=== PATIENT | female | born 1975 | race Caucasian/White ===

== ENCOUNTER 2024-09-07 17:56 | Inpatient (IN) ==
[2024-09-07] MEDS ORDERED: Patient's ALLERGY Info needs ENTERED STA (18:05)
[2024-09-07 18:35] LABS: Basophils # (auto) 0.05 K/uL (0.00-0.20); Basophils % (auto) 0.6 %; Eosinophils # (auto) 0.07 K/uL (0.00-0.50); Eosinophils % (auto) 0.8 %; Hematocrit (blood only) 38.2 % (37.0-47.0); Hemoglobin 13.1 g/dl (12.0-16.0); Immature Granulocytes # (auto) 0.02 K/uL (0.01-0.20); Immature Granulocytes % (auto) 0.2 %; Lymphocytes % (auto) 34.6 %; Mean Corpuscular Hemoglobin 27.7 pg (25.0-34.0); Mean Corpuscular Hgb Conc 34.3 g/dL (32.0-36.0); Mean Corpuscular Volume 80.8 fL (80.0-100.0); Mean Platelet Volume 10.8 fL (9.4-12.4); Monocytes # (auto) 0.49 K/uL (0.11-0.59); Monocytes % (auto) 5.6 %; Neutrophils # (auto) 5.05 K/uL (1.40-6.50); Neutrophils % (auto) 58.2 %; Platelet Count 216 K/uL (130-400); RDW Standard Deviation 41.5 fL (36.4-46.3); Red Blood Count 4.73 M/uL (4.20-5.40); White Blood Count 8.68 K/ul (4.8-10.8)
--- NOTE | 2024-09-07 18:49 | XRay Report ---
Chest radiograph, one view History: Chest pain Comparison: None Findings: Single AP view of the chest performed. No focal consolidation or pleural effusion. No pneumothorax. The cardiomediastinal silhouette is within normal limits. Normal pulmonary vascularity. No evidence for lymphadenopathy. No visualized bony or soft tissue abnormality. Impression: Normal chest radiograph Electronically signed by Zac Vallecillo 09-07-2024 6:48 PM
[2024-09-07 18:51] LABS: Alanine Aminotransferase 15 U/L (7-52); Albumin Globulin Ratio 1.4 (0.9-2); Albumin Level 4.2 gm/dl (3.4-5.0); Alkaline Phosphatase 76 U/L (34-104); Anion Gap 6 (3-11); Aspartate Aminotransferase 18 U/L (13-39); BUN Creatinine Ratio 14.5 (10-20); Bilirubin,Total 0.3 mg/dl (0.2-1.0); Blood Urea Nitrogen 11 mg/dl (6-23); Calcium 9.6 mg/dl (8.6-10.3); Carbon Dioxide 28 mmol/L (21-32); Chloride 103 mmol/L (98-107); Globulin 2.9 gm/dl (2.5-4.0); Glucose 240 mg/dl (70-99(Fasting)); Potassium 3.4 mmol/L (3.5-5.1); Sodium 137 mmol/L (136-145); Total Protein 7.1 gm/dl (6.0-8.3)
[2024-09-07 18:58] LABS: Troponin I High Sensitivity 6.2 pg/ml (0-14)
[2024-09-07 19:11] LABS: INR 0.9 (0.9-1.1); Partial Thromboplastin Time 27 Seconds (21-31); Prothrombin Time 9.9 Seconds (9.0-12.0)
--- NOTE | 2024-09-07 20:32 | Emergency Department Note ---
Impression & Plan Hypertensive crisis, Chest pain ED Provider Note NAME: PATRICIO VEE AGE: 48 SEX: F : 1975 ARRIVES VIA: Ambulance INFORMANT: Patient ED PROVIDER(S): Robert Singh DO CHIEF COMPLAINT: Chest pain and hypertension HPI: Patient is a 48-year-old female with a past medical history of hypertension that presents to the ER for chest pain which has been present for the past 2 days associate with a cough. Patient also admits to a headache and her blood pressures of 200s. She denies any belly pain, nausea, vomiting, or diarrhea. No dysuria, urgency, or frequency. No other new or remitting factors. She notes she is currently on lisinopril and did take this this morning. ADDITIONAL HISTORY OBTAINED: Per HPI Chronic Medical/Social Conditions Affecting Care: Per HPI PAST MEDICAL HISTORY:See Below PAST SURGICAL HISTORY:See Below FAMILY HISTORY:See Below SOCIAL HISTORY:See Below HOME MEDICATIONS:See Below ALLERGIES:See Below VITALS:See Below PHYSICAL EXAMINATION: GENERAL: Sitting up in bed, alert, well appearing, well nourished, no distress, non-toxic EYE EXAM: normal conjunctiva. OROPHARYNX: mucous membranes are moist NECK: supple, no nuchal rigidity, no adenopathy, non-tender LUNGS: Clear to auscultation. Normal chest wall mechanics HEART: no murmurs, S1 normal and S2 normal ABDOMEN: abdomen soft, non-tender, normo-active bowel sounds, no masses, no rebound or guarding. UPPER EXTREMITIES: upper extremities are grossly normal. LOWER EXTREMITIES: No pitting edema. NEURO EXAM: Normal sensorium, cranial nerves II-XII grossly intact, normal speech, no gross weakness of arms, no gross weakness of legs. MEDICAL DECISION MAKING: Patient is a 48-year-old female who presents ER for the below stated complaint. IV was established and blood work was obtained. Labs show no significant leukocytosis or anemia. INR unremarkable. BMP with mild hypokalemia 3.4. LFTs and bilirubin were unremarkable. Troponin was negative. Viral panel was negative. CT angio of the chest was negative. CT head was negative. Patient was given IV labetalol for the hypertensive urgency/crisis. Patient was updated bedside. Discussed case with the hospitalist. Systolic pressures trended down from 220 to 180. Patient was admitted for further evaluation management treatment. Consults/Care Managements Discussions: Per [facility] Triage Nursing notes reviewed. Limited review of prior medical records performed Vital Signs: reviewed and remarkable for HTN Differential diagnosis: Cardiac ischemia, aortic dissection, pulmonary embolism, pneumothorax, pneumonia, pericarditis, myocarditis, esophageal rupture, GERD, cholecystitis, pancreatitis, musculoskeletal, as well as other pathologies. ER treatment provided: See below Diagnostics interpreted by me include EKG and cardiac monitoring as listed below: -Cardiac Monitoring: An order was placed for continuous cardiac monitoring. The monitor shows a rate of 70 with sinus rhythm. -ECG: Sinus rhythm rate 75 Normal axis No PVCs QTc 453 -Laboratory studies:Interpreted by me as stated above in MDM and shown below. Imaging studies: Xrays: As interpreted by me: Portable AP upright 1 view of the chest shows no focal infiltrate CTs show: none Procedures:none Critical Care: I have personally spent 33 minutes of critical care time in the direct management of this patient. This includes bedside care, interpretation of diagnostic studies, and testing, discussion with consultants, patient, and family members, and other required patient management activities. This 33 minutes is in excess of all separately billable procedures. Past Med/Surg History Problem List (Updated 09/08/24 @ 00:30 by Beau Guillen MD) Hypertensive crisis Social History Smoking Status: Current every day smoker Hx Alcohol Use: No Hx Substance Use: No Preferred Language: Frisian Filer Repairer Required: No Beliefs That Will Affect Care: None Current Living Situation: Family Feels Safe at Home: Yes Allergies Allergies Allergy/AdvReac Type Severity Reaction Status Date / Time latex Allergy Severe Rash Verified 09/07/24 21:52 naproxen Allergy Anaphylaxis Verified 09/07/24 21:52 metoprolol [From Toprol XL] AdvReac Intermediate swelling Verified 09/07/24 22:32 aspirin AdvReac Nausea Verified 09/07/24 21:51 Home Meds Home Medications Medication Instructions Recorded Confirmed Lasix 20 mg PO DAILY PRN leg swelling 09/07/24 09/07/24 fluoxetine 40 mg PO DAILY 09/07/24 09/07/24 levothyroxine 50 mcg PO DAILY 09/07/24 09/07/24 lisinopril 40 mg PO DAILY 09/07/24 09/07/24 omeprazole 20 mg PO DAILY 09/07/24 09/07/24 oxycodone 5 mg PO Q4H PRN Pain (Scale Score 09/07/24 09/07/24 4-6) potassium chloride 20 meq PO DAILY 09/07/24 09/07/24 pregabalin 150 mg PO TID 09/07/24 09/07/24 trazodone 200 mg PO HS 09/07/24 09/07/24 Results & Data (ED) Vital Signs Vital Signs - 24 hr 09/07/24 18:05 09/07/24 20:13 09/07/24 20:13 Temperature 36.8 C Temperature Source Temporal Artery Scan Pulse Rate 82 Pulse Rate [Apical] 67 Pulse Rate from SpO2 Sensor Pulse Rhythm [Apical] Pulse Strength [Apical] Respiratory Rate 18 15 Respiratory Effort / Characteristics Respiratory Depth Respiratory Pattern Blood Pressure 196/133 H Blood Pressure [Left Arm] 212/120 H Blood Pressure Mean 154 Blood Pressure Mean [Left Arm] 150 Pulse Oximetry 98 99 99 Oxygen Delivery Method Room Air Room Air Room Air Sepsis Recent Fever Within 48 Hours No Sepsis New/Unexplained Change in Mental Status N/A Sepsis Action Taken by Nursing No Action Required 09/07/24 20:13 09/07/24 20:15 09/07/24 21:13 Temperature Temperature Source Pulse Rate 71 67 Pulse Rate [Apical] Pulse Rate from SpO2 Sensor Pulse Rhythm [Apical] Pulse Strength [Apical] Respiratory Rate Respiratory Effort / Characteristics Respiratory Depth Respiratory Pattern Blood Pressure 199/122 H Blood Pressure [Left Arm] Blood Pressure Mean Blood Pressure Mean [Left Arm] Pulse Oximetry 98 Oxygen Delivery Method Room Air Sepsis Recent Fever Within 48 Hours Sepsis New/Unexplained Change in Mental Status Sepsis Action Taken by Nursing 09/07/24 23:09 09/07/24 23:15 09/07/24 23:15 Temperature Temperature Source Pulse Rate 71 Pulse Rate [Apical] 70 Pulse Rate from SpO2 Sensor 71 Pulse Rhythm [Apical] Regular Pulse Strength [Apical] Normal Respiratory Rate 19 18 Respiratory Effort / Characteristics Non-Labored Spontaneous Respiratory Depth Normal Respiratory Pattern Regular Blood Pressure 214/115 H Blood Pressure [Left Arm] 209/112 H Blood Pressure Mean 156 Blood Pressure Mean [Left Arm] 144 Pulse Oximetry 99 99 Oxygen Delivery Method Room Air Sepsis Recent Fever Within 48 Hours Sepsis New/Unexplained Change in Mental Status Sepsis Action Taken by Nursing 09/07/24 23:15 09/07/24 23:30 09/07/24 23:30 Temperature Temperature Source Pulse Rate 71 Pulse Rate [Apical] Pulse Rate from SpO2 Sensor 69 Pulse Rhythm [Apical] Pulse Strength [Apical] Respiratory Rate 21 Respiratory Effort / Characteristics Respiratory Depth Respiratory Pattern Blood Pressure 214/115 H 173/144 H Blood Pressure [Left Arm] Blood Pressure Mean 156 150 Blood Pressure Mean [Left Arm] Pulse Oximetry 99 Oxygen Delivery Method Sepsis Recent Fever Within 48 Hours Sepsis New/Unexplained Change in Mental Status Sepsis Action Taken by Nursing 09/07/24 23:33 09/07/24 23:46 09/07/24 23:46 Temperature Temperature Source Pulse Rate 74 Pulse Rate [Apical] Pulse Rate from SpO2 Sensor 74 Pulse Rhythm [Apical] Pulse Strength [Apical] Respiratory Rate 17 Respiratory Effort / Characteristics Respiratory Depth Respiratory Pattern Blood Pressure 191/106 H 191/106 H Blood Pressure [Left Arm] Blood Pressure Mean 124 124 Blood Pressure Mean [Left Arm] Pulse Oximetry 99 Oxygen Delivery Method Sepsis Recent Fever Within 48 Hours Sepsis New/Unexplained Change in Mental Status Sepsis Action Taken by Nursing 09/07/24 23:48 09/07/24 23:51 09/08/24 00:00 Temperature Temperature Source Pulse Rate 83 Pulse Rate [Apical] Pulse Rate from SpO2 Sensor 84 Pulse Rhythm [Apical] Pulse Strength [Apical] Respiratory Rate 15 19 Respiratory Effort / Characteristics Respiratory Depth Respiratory Pattern Blood Pressure 212/118 H Blood Pressure [Left Arm] Blood Pressure Mean 151 Blood Pressure Mean [Left Arm] Pulse Oximetry 98 Oxygen Delivery Method Sepsis Recent Fever Within 48 Hours Sepsis New/Unexplained Change in Mental Status Sepsis Action Taken by Nursing 09/08/24 00:00 09/08/24 00:10 09/08/24 00:10 Temperature Temperature Source Pulse Rate Pulse Rate [Apical] Pulse Rate from SpO2 Sensor Pulse Rhythm [Apical] Pulse Strength [Apical] Respiratory Rate Respiratory Effort / Characteristics Respiratory Depth Respiratory Pattern Blood Pressure 212/118 H 171/113 H 171/113 H Blood Pressure [Left Arm] Blood Pressure Mean 151 139 139 Blood Pressure Mean [Left Arm] Pulse Oximetry Oxygen Delivery Method Sepsis Recent Fever Within 48 Hours Sepsis New/Unexplained Change in Mental Status Sepsis Action Taken by Nursing 09/08/24 00:12 09/08/24 00:15 09/08/24 00:15 Temperature Temperature Source Pulse Rate 89 90 Pulse Rate [Apical] Pulse Rate from SpO2 Sensor 93 H 87 Pulse Rhythm [Apical] Pulse Strength [Apical] Respiratory Rate 16 20 Respiratory Effort / Characteristics Respiratory Depth Respiratory Pattern Blood Pressure 152/94 H Blood Pressure [Left Arm] Blood Pressure Mean 130 Blood Pressure Mean [Left Arm] Pulse Oximetry 94 98 Oxygen Delivery Method Sepsis Recent Fever Within 48 Hours Sepsis New/Unexplained Change in Mental Status Sepsis Action Taken by Nursing 09/08/24 00:16 09/08/24 00:20 09/08/24 00:25 Temperature Temperature Source Pulse Rate 84 Pulse Rate [Apical] Pulse Rate from SpO2 Sensor Pulse Rhythm [Apical] Pulse Strength [Apical] Respiratory Rate Respiratory Effort / Characteristics Respiratory Depth Respiratory Pattern Blood Pressure 177/99 H 183/107 H Blood Pressure [Left Arm] Blood Pressure Mean 137 135 Blood Pressure Mean [Left Arm] Pulse Oximetry Oxygen Delivery Method Sepsis Recent Fever Within 48 Hours Sepsis New/Unexplained Change in Mental Status Sepsis Action Taken by Nursing Laboratory Data 09/07/24 18:19 09/07/24 18:19 Lab Results 09/07/24 09/07/24 09/07/24 Range/Units 18:19 21:50 22:29 WBC 8.68 (4.8-10.8) K/ul RBC 4.73 (4.20-5.40) M/uL Hgb 13.1 (12.0-16.0) g/dl Hct 38.2 (37.0-47.0) % MCV 80.8 (80.0-100.0) fL MCH 27.7 (25.0-34.0) pg MCHC 34.3 (32.0-36.0) g/dL RDW Std Deviation 41.5 (36.4-46.3) fL RDW Coeff of Nirav 14.0 (11.5-14.5) % Plt Count 216 (130-400) K/uL MPV 10.8 (9.4-12.4) fL Immature Gran % (Auto) 0.2 % Neut % (Auto) 58.2 % Lymph % (Auto) 34.6 % [place] % (Auto) 5.6 % Eos % (Auto) 0.8 % Baso % (Auto) 0.6 % Neut # (Auto) 5.05 (1.40-6.50) K/uL Lymph # (Auto) 3.00 (1.20-3.40) K/uL [place] # (Auto) 0.49 (0.11-0.59) K/uL Eos # (Auto) 0.07 (0.00-0.50) K/uL Baso # (Auto) 0.05 (0.00-0.20) K/uL Immature Gran # (Auto) 0.02 (0.01-0.20) K/uL ESR 18 (0-20) mm/hr PT 9.9 (9.0-12.0) Seconds INR 0.9 (0.9-1.1) APTT 27 (21-31) Seconds PTT Ratio 1.0 Sodium 137 (136-145) mmol/L Potassium 3.4 L (3.5-5.1) mmol/L Chloride 103 (98-107) mmol/L Carbon Dioxide 28 (21-32) mmol/L Anion Gap 6 (3-11) BUN 11 (6-23) mg/dl Creatinine 0.76 (0.6-1.2) mg/dl Est Cr Clr Drug Dosing Not Reportable eGFR 97.81 BUN/Creatinine Ratio 14.5 (10-20) Glucose 240 H (70-99(Fasting)) mg/dl Calcium 9.6 (8.6-10.3) mg/dl Magnesium 1.7 (1.7-2.4) mg/dl Total Bilirubin 0.3 (0.2-1.0) mg/dl AST 18 (13-39) U/L ALT 15 (7-52) U/L Alkaline Phosphatase 76 (34-104) U/L Troponin I High Sens 6.2 8.3 (0-14) pg/ml C-Reactive Protein 1.38 H (0-0.5) mg/dl Total Protein 7.1 (6.0-8.3) gm/dl Albumin 4.2 (3.4-5.0) gm/dl Globulin 2.9 (2.5-4.0) gm/dl Albumin/Globulin Ratio 1.4 (0.9-2) TSH 1.809 (0.300-4.500) uIu/ml Adenovirus (PCR) Not Detected (NotDetected) B. pertussis DNA (PCR) Not Detected (NotDetected) B.parapertussis DNA PCR Not Detected (NotDetected) C. pneumoniae DNA (PCR) Not Detected (NotDetected) Coronavirus OC43 (PCR) Not Detected (NotDetected) Coronavirus HKU1 (PCR) Not Detected (NotDetected) Coronavirus 229E (PCR) Not Detected (NotDetected) SARS-CoV-2 (PCR) Not Detected (NotDetected) Coronavirus NL63 (PCR) Not Detected (NotDetected) Human Metapneumovir PCR Not Detected (NotDetected) Influenza Type A (PCR) Not Detected (NotDetected) Influenza Type B (PCR) Not Detected (NotDetected) M. pneumoniae (PCR) Not Detected (NotDetected) Parainfluenza 1 (PCR) Not Detected (NotDetected) Parainfluenza 2 (PCR) Not Detected (NotDetected) Parainfluenza 3 (PCR) Not Detected (NotDetected) Parainfluenza 4 (PCR) Not Detected (NotDetected) RSV (PCR) Not Detected (NotDetected) Entero/Rhino (PCR) Not Detected (NotDetected) Administered Medications Potassium Chloride/Sodium Chloride (Normal Saline W/20 Meq Kcl) 20 meq in 1,000 mls @ 50 mls/hr IV .Q20H ONE Stop: 09/08/24 17:49 Last Admin: 09/07/24 22:52 Dose: 50 mls/hr Documented By: MARICRUZ Promethazine HCl (Phenergan) 6.25 mg in 50.25 mls @ 201 mls/hr IV Q6H PRN PRN Reason: Nausea And Vomiting Stop: 10/07/24 21:50 Last Infusion: 09/07/24 23:11 Dose: Infused Documented By: Admin: 09/07/24 22:52 Dose: 201 mls/hr Documented By: MARICRUZ Magnesium Sulfate/Dextrose (Magnesium Sulfate / D5w) 1 gm in 100 mls @ 50 mls/hr IV ONE ONE Stop: 09/08/24 01:44 Last Admin: 09/08/24 00:04 Dose: 50 mls/hr Documented By: ORLANDO Morphine Sulfate (Morphine Sulfate 4 Mg/Ml 1 Ml Carp\Vial) 4 mg IV Q4H PRN PRN Reason: Pain Stop: 09/21/24 21:50 Last Admin: 09/07/24 22:51 Dose: 4 mg Documented By: MARICRUZ Nitroglycerin (Nitroglycerin Sl 0.4 Mg/Tab Tab) 0.4 mg SL Q5M PRN PRN Reason: Chest Pain Stop: 10/07/24 23:18 Last Admin: 09/08/24 00:07 Dose: 0.4 mg Documented By: ORLANDO Pregabalin (Pregabalin 150 Mg Cap) 150 mg PO TID [facility] Stop: 10/07/24 23:44 Last Admin: 09/08/24 00:03 Dose: 150 mg Documented By: ORLANDO Trazodone HCl (Trazodone Hcl 100 Mg Tab) 200 mg PO HS [facility] Stop: 10/07/24 23:29 Last Admin: 09/08/24 00:02 Dose: 200 mg Documented By: ORLANDO Discontinued Medications Amlodipine Besylate (Amlodipine Besylate 5 Mg Tab) 2.5 mg PO NOW ONE Stop: 09/07/24 21:40 Last Admin: 09/07/24 22:35 Dose: 2.5 mg Documented By: MARICRUZ Amlodipine Besylate (Amlodipine Besylate 5 Mg Tab) 2.5 mg PO NOW ONE Stop: 09/07/24 23:32 Last Admin: 09/08/24 00:03 Dose: 2.5 mg Documented By: ORLANDO Hydralazine HCl (Hydralazine Hcl 20 Mg/Ml Vial) 10 mg IV NOW STA Stop: 09/07/24 22:47 Last Admin: 09/07/24 23:00 Dose: 10 mg Documented By: MARICRUZ Promethazine HCl (Phenergan) 6.25 mg in 50.25 mls @ 201 mls/hr IV NOW STA Stop: 09/07/24 23:00 Last Admin: 09/07/24 23:02 Dose: Not Given Documented By: MARICRUZ Ioversol (Optiray 320 125ml) 115 ml IV ONCE ONE Stop: 09/07/24 22:05 Last Admin: 09/07/24 22:07 Dose: 115 ml Documented By: GRAHAM Labetalol HCl (Labetalol Hcl Iv 5 Mg/Ml 20ml) 10 mg IV NOW STA Stop: 09/07/24 20:30 Last Admin: 09/07/24 20:40 Dose: 10 mg Documented By: MARICRUZ Nicotine (Nicotine 21 Mg/24 Hr Tdsy) 1 patch TD NOW STA Stop: 09/07/24 22:04 Last Admin: 09/07/24 22:38 Dose: 1 patch Documented By: MARICRUZ Oxycodone HCl (Oxycodone Hcl Ir 5 Mg Tab (Immediate Release)) 5 mg PO NOW STA Stop: 09/07/24 21:20 Last Admin: 09/07/24 21:44 Dose: 5 mg Documented By: MARICRUZ Potassium Chloride (Potassium Chloride Crtab 20 Meq Tabcr) 40 meq PO NOW STA Stop: 09/07/24 20:51 Last Admin: 09/07/24 21:13 Dose: 40 meq Documented By: MARICRUZ Imaging Data Radiologist's Impression: Chest X-Ray 09/07/24 18:10 Chest radiograph, one view History: Chest pain Comparison: None Findings: Single AP view of the chest performed. No focal consolidation or pleural effusion. No pneumothorax. The cardiomediastinal silhouette is within normal limits. Normal pulmonary vascularity. No evidence for lymphadenopathy. No visualized bony or soft tissue abnormality. Impression: Normal chest radiograph Electronically signed by Zac Vallecillo 09-07-2024 6:48 PM Chest CTA 09/07/24 21:39 Exam(s): CTA CHEST IV Amt: 115 ml optiray 320 EXAM: CT Angiography Chest With Intravenous Contrast CLINICAL HISTORY: Reason for exam: cp. TECHNIQUE: Axial computed tomographic angiography images of the chest with intravenous contrast. CTDI is 34.93 mGy and DLP is 1592.61 mGy-cm. Automated exposure control was utilized for the study. A dose lowering technique was utilized adhering to the principles of ALARA. MIP reconstructed images were created and reviewed. COMPARISON: No relevant prior studies available. FINDINGS: Pulmonary arteries: Unremarkable. No pulmonary embolism. Aorta: No acute findings. No thoracic aortic aneurysm. Lungs: Unremarkable. No segmental or lobar consolidation. Pleural space: Unremarkable. No pleural fluid or pneumothorax. Heart: Unremarkable. No cardiomegaly. No significant pericardial effusion. No evidence of RV dysfunction. Bones/joints: No acute fracture. No dislocation. Soft tissues: Unremarkable. Lymph nodes: There is mild bilateral hilar lymphadenopathy. No significant mediastinal lymphadenopathy identified. No axillary lymphadenopathy. Gallbladder and bile ducts: The gallbladder has been removed. Other findings: No primary mass or suspicious nodule. No significant upper abdominal abnormality identified. IMPRESSION: 1. No pulmonary embolism. 2. There is mild bilateral hilar lymphadenopathy. No significant mediastinal lymphadenopathy identified. No axillary lymphadenopathy. CT follow-up in 6 weeks recommended to document stability/resolution. Electronically signed by: Raheel Roberts MD 09/07/24 23:[address] 09/07/24 21:39 Exam(s): CT HEAD Without Contrast EXAM: CT Head Without Intravenous Contrast CLINICAL HISTORY: Reason for exam: clancy, htn crisis. TECHNIQUE: Axial computed tomography images of the head/brain without intravenous contrast. CTDI is 34.93 mGy and DLP is 1592.61 mGy-cm. Automated exposure control was utilized for the study. A dose lowering technique was utilized adhering to the principles of ALARA. COMPARISON: No relevant prior studies available. FINDINGS: Brain: Unremarkable. No hemorrhage. No significant white matter disease. No edema. Ventricles: Unremarkable. No ventriculomegaly. Bones/joints: Unremarkable. No acute fracture. Soft tissues: Unremarkable. Sinuses: Unremarkable as visualized. No acute sinusitis. Mastoid air cells: Unremarkable as visualized. No mastoid effusion. Sella: There is an empty sella. IMPRESSION: No acute intracranial abnormality. Electronically signed by: Raheel Roberts MD 09/07/24 23:21 PM Discharge Plan Visit Data Chief Complaint: Chest Pain Stated Complaint: CHEST PAIN ED Provider: Robert Singh Discharge Problem: Hypertensive crisis, Chest pain Forms Stand Alone Forms: My [facility] Prescriptions Prescriptions: No Action levothyroxine 50 mcg PO DAILY lisinopril 40 mg PO DAILY omeprazole 20 mg PO DAILY pregabalin 150 mg PO TID oxycodone 5 mg PO Q4H PRN (Reason: Pain (Scale Score 4-6)) Lasix 20 mg PO DAILY PRN (Reason: leg swelling) fluoxetine 40 mg PO DAILY potassium chloride 20 meq PO DAILY trazodone 200 mg PO Referrals Referrals: Doug Hong PA-C [Primary Care Provider] -
[2024-09-07] MEDS: LABETALOL HCL IV 5 MG/ML 20ML IV STA (20:40)
[2024-09-07 21:11] LABS: Magnesium 1.7 mg/dl (1.7-2.4)
[2024-09-07] MEDS: POTASSIUM CHLORIDE CRTAB 20 MEQ TABCR PO STA (21:13)
[2024-09-07 21:27] LABS: Thyroid Stimulating Hormone 1.809 uIu/ml (0.300-4.500)
[2024-09-07] MEDS: oxyCODONE HCL IR 5 MG TAB (IMMEDIATE RELEASE) PO STA (21:44)
[2024-09-07] MEDS ORDERED: LORazepam 0.5 MG TAB PO PRN (21:51)
[2024-09-07] MEDS ORDERED: oxyCODONE HCL IR 5 MG TAB (IMMEDIATE RELEASE) PO PRN (21:51)
[2024-09-07] MEDS: OPTIRAY 320 125ml IV ONE (22:07)
[2024-09-07] MEDS: amLODIPine BESYLATE 5 MG TAB PO ONE (22:35)
[2024-09-07] MEDS: NICOTINE 21 MG/24 HR TDSY TD STA (22:38)
[2024-09-07] MEDS: MoRPHine SULFATE 4 MG/ML 1 ML CARP\\VIAL IV PRN (22:51)
[2024-09-07 22:52] LABS: Adenovirus PCR Not Detected (NotDetected); Bordetella parapertussis PCR Not Detected (NotDetected); Bordetella pertussis PCR Not Detected (NotDetected); Chlamydia pneumoniae PCR Not Detected (NotDetected); Coronavirus 229E PCR Not Detected (NotDetected); Coronavirus CoV-2 (COVID19)PCR Not Detected (NotDetected); Coronavirus HKU1 PCR Not Detected (NotDetected); Coronavirus NL63 PCR Not Detected (NotDetected); Coronavirus OC43PCR Not Detected (NotDetected); Human Metapneumovirus PCR Not Detected (NotDetected); Influenza A PCR Not Detected (NotDetected); Influenza B PCR Not Detected (NotDetected); Mycoplasma pneumoniae PCR Not Detected (NotDetected); Parainfluenza Virus 1 PCR Not Detected (NotDetected); Parainfluenza Virus 2 PCR Not Detected (NotDetected); Parainfluenza Virus 3 PCR Not Detected (NotDetected); Parainfluenza Virus 4 PCR Not Detected (NotDetected); Respiratory Syncytial VirusPCR Not Detected (NotDetected); Rhinovirus/Enterovirus PCR Not Detected (NotDetected)
[2024-09-07] MEDS: PROMETHAZINE 6.25 MG/50.25 ML BAG IV PRN (22:52)
[2024-09-07] MEDS: NSS + 20MEQ KCL 20 MEQ/1,000 ML BAG IV ONE (22:52)
[2024-09-07] MEDS: hydrALAZINE HCL 20 MG/ML VIAL IV STA (23:00)
[2024-09-07] MEDS: PROMETHAZINE 6.25 MG/50.25 ML BAG IV STA (23:02)
[2024-09-07 23:07] LABS: C Reactive Protein 1.38 mg/dl (0-0.5)
[2024-09-07 23:15] LABS: Troponin I High Sensitivity 8.3 pg/ml (0-14)
--- NOTE | 2024-09-07 23:24 | History & Physical Report ---
Date of Service September 07, 2024 Assessment & Plan (1) Hypertensive crisis: Plan: Hypertensive crisis presenting as chest pain and headache complaints Concern for secondary causes of hypertension like primary hyperaldosteronism (given chronic hypokalemia on review of outpatient blood work) and LAURIE Rule out ACS given chest pain relief with nitroglycerin. hyperlipidemia, not on statin Rx Hilar adenopathy on CT imaging possibly from viral RTI DM2 on oral medications, BSG elevated, well-controlled as of last outpatient hemoglobin A1c of 6.6 from 2022 hypothyroidism, euthyroid as of today's TSH hx chronic migraine/idiopathic intracranial hypertension as per records anxiety/mood disorder, mild anxiety during exam ongoing tobacco abuse Admit to PCU Add amlodipine to home lisinopril (Patient provides history of BP being well-controlled on amlodipine in the past. Amlodipine had to be discontinued because of leg swelling after metoprolol added to regimen as per patient account.) Aldosterone to renin ratio labwork Outpatient sleep study TTE, Cardiology consult re: chest pain, hypertensive crisis Follow troponin Aspirin until ACS ruled out Initiate statin Rx Update lipid profile Supportive management for viral bronchitis Replace potassium Outpatient chest CT follow-up for hilar adenopathy after 6 weeks Basal bolus insulin, ISS BG goal 1 10-1 40, update hemoglobin A1c Nicotine patch DVT prophylaxis. Lovenox subcu Full code Text document was generated using [employer] voice recognition software. It may contain grammatical or spelling errors. Kindly contact undersigned for clarification of any documentation item in question. History of Present Illness Chief Complaint: Chest pain, headache Primary Care Provider: Doug Hong PA-C History obtained from patient, family, and records. Medical history significant for hypertension, hyperlipidemia, GERD, DM2 on oral medications, hypothyroidism, chronic migraine, idiopathic intracranial hypertension as per records, anxiety/mood disorder, ongoing tobacco abuse. 1 week history of achy headache symptoms different from migraine which later became constant. Some stress at home due to packing and extended work shifts in preparation for relocation to [place] next month. Nonrestorative sleep at home with snoring symptoms as per patient/family account. Patient does not check blood pressure at home. 2 days history of dry cough symptoms without chest pain or SOB. 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 Denies aspiration. No fever, no chills. No known exposure to sick animals/dairy cows/raw milk/wild birds/poultry/agricultural fair attendance/recent travel to an area of known H5N1 animal outbreaks. 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 SBP 240s at the worksite. Patient brought to ER for evaluation. IV labetalol administered at the ER. Chest pain relieved by nitroglycerin administration at the ER. Medical History as above Surgical History : Lymph node biopsy, cervical colposcopy, D&C Family History : Breast cancer, DM, SLE, heart disease Personal/Social history : 1 pack daily, occasional EtOH intake, EMT Allergies Allergy/AdvReac Type Severity Reaction Status Date / Time latex Allergy Severe Rash Verified 09/07/24 21:52 naproxen Allergy Anaphylaxis Verified 09/07/24 21:52 metoprolol [From Toprol XL] AdvReac Intermediate swelling Verified 09/07/24 22:32 aspirin AdvReac Nausea Verified 09/07/24 21:51 Home Medications Medication Instructions Recorded Confirmed Type Lasix 20 mg PO DAILY PRN leg swelling 09/07/24 09/07/24 History fluoxetine 40 mg PO DAILY 09/07/24 09/07/24 History levothyroxine 50 mcg PO DAILY 09/07/24 09/07/24 History lisinopril 40 mg PO DAILY 09/07/24 09/07/24 History omeprazole 20 mg PO DAILY 09/07/24 09/07/24 History oxycodone 5 mg PO Q4H PRN Pain (Scale Score 09/07/24 09/07/24 History 4-6) potassium chloride 20 meq PO DAILY 09/07/24 09/07/24 History pregabalin 150 mg PO TID 09/07/24 09/07/24 History trazodone 200 mg PO HS 09/07/24 09/07/24 History Past Med/Surg History Problem List (Updated 09/08/24 @ 00:30 by Beau Guillen MD) Hypertensive crisis Social History Smoking Status: Current every day smoker Tobacco Type: Cigarettes Cigarettes Per Day: 1 pack; Hx Alcohol Use: Yes Alcohol type: hard liquor Hx Substance Use: No Preferred Language: Indian Communication Ability: Effective Loss Control Engineer Required: No Beliefs That Will Affect Care: None Current Living Situation: Family Other Information That Helps Us Care for You: No Feels Safe at Home: Yes Safety Concerns: Feels Safe At This Time Review of Systems Review of Systems: As per HPI, all other systems reviewed and negative Physical Exam Physical Exam: GENERAL: Comfortable, slightly anxious, obese, no respiratory distress SKIN: Normal color, warm HEENT: [place] palpebral conjunctivae, no ptosis, moist buccal mucosa NECK : Supple, no tenderness CHEST : Decreased breath sounds, no tenderness HEART : RRR, no obvious murmurs ABDOMEN: Some distention, nontender EXTREMITIES : No LE swelling/tenderness, palpable pulses, no other conspicuous deformities noted NEUROLOGIC : Coherent, no facial asymmetry, no other gross focality Results & Data Results & Data Vital Signs (Past 12 Hours) Vital Signs Temp Pulse Pulse Resp BP BP Pulse Ox 09/07/24 23:09 70 19 209/112 H 99 09/07/24 21:13 67 199/122 H 09/07/24 20:15 71 09/07/24 20:13 98 09/07/24 20:13 67 15 212/120 H 99 09/07/24 20:13 99 09/07/24 18:05 36.8 C 82 18 196/133 H 98 O2 Del Method 09/07/24 23:09 Room Air 09/07/24 21:13 09/07/24 20:15 09/07/24 20:13 Room Air 09/07/24 20:13 Room Air 09/07/24 20:13 Room Air 09/07/24 18:05 Room Air Laboratory Results Laboratory Results WBC 8.68 K/ul (4.8-10.8) 09/07/24 18:19 RBC 4.73 M/uL (4.20-5.40) 09/07/24 18:19 Hgb 13.1 g/dl (12.0-16.0) 09/07/24 18:19 Hct 38.2 % (37.0-47.0) 09/07/24 18:19 MCV 80.8 fL (80.0-100.0) 09/07/24 18:19 MCH 27.7 pg (25.0-34.0) 09/07/24 18:19 MCHC 34.3 g/dL (32.0-36.0) 09/07/24 18:19 RDW Std Deviation 41.5 fL (36.4-46.3) 09/07/24 18:19 RDW Coeff of Nirav 14.0 % (11.5-14.5) 09/07/24 18:19 Plt Count 216 K/uL (130-400) 09/07/24 18:19 MPV 10.8 fL (9.4-12.4) 09/07/24 18:19 Immature Gran % (Auto) 0.2 % 09/07/24 18:19 Neut % (Auto) 58.2 % 09/07/24 18:19 Lymph % (Auto) 34.6 % 09/07/24 18:19 Bailey % (Auto) 5.6 % 09/07/24 18:19 Eos % (Auto) 0.8 % 09/07/24 18:19 Baso % (Auto) 0.6 % 09/07/24 18:19 Neut # (Auto) 5.05 K/uL (1.40-6.50) 09/07/24 18:19 Lymph # (Auto) 3.00 K/uL (1.20-3.40) 09/07/24 18:19 Bailey # (Auto) 0.49 K/uL (0.11-0.59) 09/07/24 18:19 Eos # (Auto) 0.07 K/uL (0.00-0.50) 09/07/24 18:19 Baso # (Auto) 0.05 K/uL (0.00-0.20) 09/07/24 18:19 Immature Gran # (Auto) 0.02 K/uL (0.01-0.20) 09/07/24 18:19 ESR 18 mm/hr (0-20) 09/07/24 22:29 PT 9.9 Seconds (9.0-12.0) 09/07/24 18:19 INR 0.9 (0.9-1.1) 09/07/24 18:19 APTT 27 Seconds (21-31) 09/07/24 18:19 PTT Ratio 1.0 09/07/24 18:19 Sodium 137 mmol/L (136-145) 09/07/24 18:19 Potassium 3.4 mmol/L (3.5-5.1) L 09/07/24 18:19 Chloride 103 mmol/L (98-107) 09/07/24 18:19 Carbon Dioxide 28 mmol/L (21-32) 09/07/24 18:19 Anion Gap 6 (3-11) 09/07/24 18:19 BUN 11 mg/dl (6-23) 09/07/24 18:19 Creatinine 0.76 mg/dl (0.6-1.2) 09/07/24 18:19 Est Cr Clr Drug Dosing Not Reportable 09/07/24 18:19 eGFR 97.81 09/07/24 18:19 BUN/Creatinine Ratio 14.5 (10-20) 09/07/24 18:19 Glucose 240 mg/dl (70-99(Fasting)) H 09/07/24 18:19 Calcium 9.6 mg/dl (8.6-10.3) 09/07/24 18:19 Magnesium 1.7 mg/dl (1.7-2.4) 09/07/24 18:19 Total Bilirubin 0.3 mg/dl (0.2-1.0) 09/07/24 18:19 AST 18 U/L (13-39) 09/07/24 18:19 ALT 15 U/L (7-52) 09/07/24 18:19 Alkaline Phosphatase 76 U/L (34-104) 09/07/24 18:19 Troponin I High Sens 8.3 pg/ml (0-14) 09/07/24 22:29 C-Reactive Protein 1.38 mg/dl (0-0.5) H 09/07/24 22:29 Total Protein 7.1 gm/dl (6.0-8.3) 09/07/24 18:19 Albumin 4.2 gm/dl (3.4-5.0) 09/07/24 18:19 Globulin 2.9 gm/dl (2.5-4.0) 09/07/24 18:19 Albumin/Globulin Ratio 1.4 (0.9-2) 09/07/24 18:19 TSH 1.809 uIu/ml (0.300-4.500) 09/07/24 18:19 Adenovirus (PCR) Not Detected (NotDetected) 09/07/24 21:50 B. pertussis DNA (PCR) Not Detected (NotDetected) 09/07/24 21:50 B.parapertussis DNA PCR Not Detected (NotDetected) 09/07/24 21:50 C. pneumoniae DNA (PCR) Not Detected (NotDetected) 09/07/24 21:50 Coronavirus OC43 (PCR) Not Detected (NotDetected) 09/07/24 21:50 Coronavirus HKU1 (PCR) Not Detected (NotDetected) 09/07/24 21:50 Coronavirus 229E (PCR) Not Detected (NotDetected) 09/07/24 21:50 SARS-CoV-2 (PCR) Not Detected (NotDetected) 09/07/24 21:50 Coronavirus NL63 (PCR) Not Detected (NotDetected) 09/07/24 21:50 Human Metapneumovir PCR Not Detected (NotDetected) 09/07/24 21:50 Influenza Type A (PCR) Not Detected (NotDetected) 09/07/24 21:50 Influenza Type B (PCR) Not Detected (NotDetected) 09/07/24 21:50 M. pneumoniae (PCR) Not Detected (NotDetected) 09/07/24 21:50 Parainfluenza 1 (PCR) Not Detected (NotDetected) 09/07/24 21:50 Parainfluenza 2 (PCR) Not Detected (NotDetected) 09/07/24 21:50 Parainfluenza 3 (PCR) Not Detected (NotDetected) 09/07/24 21:50 Parainfluenza 4 (PCR) Not Detected (NotDetected) 09/07/24 21:50 RSV (PCR) Not Detected (NotDetected) 09/07/24 21:50 Entero/Rhino (PCR) Not Detected (NotDetected) 09/07/24 21:50 Impressions Chest X-Ray 09/07/24 18:10 Chest radiograph, one view History: Chest pain Comparison: None Findings: Single AP view of the chest performed. No focal consolidation or pleural effusion. No pneumothorax. The cardiomediastinal silhouette is within normal limits. Normal pulmonary vascularity. No evidence for lymphadenopathy. No visualized bony or soft tissue abnormality. Impression: Normal chest radiograph Electronically signed by Zac Vallecillo 09-07-2024 6:[address] 09/07/24 21:39 Exam(s): CT HEAD Without Contrast EXAM: CT Head Without Intravenous Contrast CLINICAL HISTORY: Reason for exam: clancy, htn crisis. TECHNIQUE: Axial computed tomography images of the head/brain without intravenous contrast. CTDI is 34.93 mGy and DLP is 1592.61 mGy-cm. Automated exposure control was utilized for the study. A dose lowering technique was utilized adhering to the principles of ALARA. COMPARISON: No relevant prior studies available. FINDINGS: Brain: Unremarkable. No hemorrhage. No significant white matter disease. No edema. Ventricles: Unremarkable. No ventriculomegaly. Bones/joints: Unremarkable. No acute fracture. Soft tissues: Unremarkable. Sinuses: Unremarkable as visualized. No acute sinusitis. Mastoid air cells: Unremarkable as visualized. No mastoid effusion. Sella: There is an empty sella. IMPRESSION: No acute intracranial abnormality. Electronically signed by: Raheel Roberts MD 09/07/24 23:[address] head: No acute intracranial abnormality. CT chest: 1. No pulmonary embolism. 2. There is mild bilateral hilar lymphadenopathy. No significant mediastinal lymphadenopathy identified. No axillary lymphadenopathy. CT follow-up in 6 weeks recommended to document stability/resolution. Diagnostic Findings EKG as per my interpretation : rate 75, NSR, normal axis, 1 AVB, LVH, no ischemia
--- NOTE | 2024-09-07 23:33 | CT Scan Report ---
Exam(s): CTA CHEST IV Amt: 115 ml optiray 320 EXAM: CT Angiography Chest With Intravenous Contrast CLINICAL HISTORY: Reason for exam: cp. TECHNIQUE: Axial computed tomographic angiography images of the chest with intravenous contrast. CTDI is 34.93 mGy and DLP is 1592.61 mGy-cm. Automated exposure control was utilized for the study. A dose lowering technique was utilized adhering to the principles of ALARA. MIP reconstructed images were created and reviewed. COMPARISON: No relevant prior studies available. FINDINGS: Pulmonary arteries: Unremarkable. No pulmonary embolism. Aorta: No acute findings. No thoracic aortic aneurysm. Lungs: Unremarkable. No segmental or lobar consolidation. Pleural space: Unremarkable. No pleural fluid or pneumothorax. Heart: Unremarkable. No cardiomegaly. No significant pericardial effusion. No evidence of RV dysfunction. Bones/joints: No acute fracture. No dislocation. Soft tissues: Unremarkable. Lymph nodes: There is mild bilateral hilar lymphadenopathy. No significant mediastinal lymphadenopathy identified. No axillary lymphadenopathy. Gallbladder and bile ducts: The gallbladder has been removed. Other findings: No primary mass or suspicious nodule. No significant upper abdominal abnormality identified. IMPRESSION: 1. No pulmonary embolism. 2. There is mild bilateral hilar lymphadenopathy. No significant mediastinal lymphadenopathy identified. No axillary lymphadenopathy. CT follow-up in 6 weeks recommended to document stability/resolution. Electronically signed by: Raheel Roberts MD 09/07/24 23:32 PM
[2024-09-07] MEDS ORDERED: GLUCOSE 10 TAB/TUBE PO PRN (23:45)
[2024-09-07] MEDS ORDERED: DEXTROSE 50% 50 ML SYRINGE IV PRN (23:45)
[2024-09-07] MEDS ORDERED: CARBOHYDRATES FOR HYPOGLYCEMIA PO PRN (23:45)
[2024-09-07] MEDS ORDERED: GLUCOSE 40% GEL 15 GM TUBE PO PRN (23:45)
[2024-09-07] MEDS ORDERED: GLUCAGON FOR INJ 1 MG VIAL SQ PRN (23:45)
--- OUTSIDE RECORDS SUMMARY | 2024-09-07 23:46 | External Medical Summary | Summary of Care ---
Author Name Unknown Organization [facility] Address [address] [place] [address] Phone [phone] Care Team Providers Care Cotton Cleaner Name Role Phone Doug Jane PA-C Primary Care Provider [phone] Reason for Visit * Reason Onset Date Comments Test Results 06/07/2024 Unexpected or In determinate Result Encounter Details Date Type Department Care Team ([facility] st Contact Info) Description 06/07/2024 Telephone Laboratory, [place] [address] [place] [address] Doug Jane PA-C [address] [place] [id number] Test Results (Unexpected or Indeterminate ... Allergies Active Allergy Reactions Criticality Noted Date Comments Aspirin Nausea/vomiting Low 05/13/2012 Latex Rash Low 05/13/2012 Metformin 03/17/2023 Extreme diarrhea Niacin 03/17/2023 Throat swelling documented as of this encounter (statuses as of 06/12/2024) Medications OneTouch Delica Plus [id number] use daily as directed 100 Each 11 12/15/2023 12:56 PM EDT 3 Active OneTouch Verio w/Device Kit Use up to 4 times a day E11.9 1 Kit 04/12/2023 4:45 PM EDT 3 Active OneTouch Verio In Vitro Strip (Glucose Blood) Use up to 4 times a day E11.9 100 Strip 11 12/15/2023 12:56 PM EDT 3 Active FLUoxetine HCl 40 MG Oral Capsule (PROzac)Indicati ons:Mood disorder (HCC) Take 1 Capsule by mouth in the morning. 90 Capsule 3 04/26/2024 2:27 PM EDT 4 Active FreeStyle Belia 3 Sensor Use as directed. Use to monitor blood sugars daily DX E11.9 6 Each 3 03/13/2024 11:43 AM EDT 4 Active acetaZOLAMIDE 250 MG Oral Tablet (Diamox) Take 1 Tablet by mouth in the morning and 1 Tablet before bedtime. 60 Tablet 2 11/17/2023 10:06 AM EDT 4 Active Furosemide 20 MG Oral Tablet (Lasix)Indicatio ns:Leg edema Take 1 Tablet by mouth daily as needed for Other (leg swelling). 30 Tablet 5 11/17/2023 10:06 AM EDT 4 Active Lisinopril 40 MG Oral TabletIndication s:HTN, goal below 140/90 Take 1 Tablet by mouth in the morning. 90 Tablet 3 03/28/2024 11:12 AM EDT 4 Active traZODone HCl 100 MG Oral Tablet (Desyrel)Indicat ions:Insomnia, unspecified type Take 2 Tablets by mouth at bedtime. 120 Tablet 5 04/17/2024 4:47 PM EDT 4 Active Potassium Chloride 20 MEQ/15ML (10%) Oral SolutionIndicati ons:HTN, goal below 140/90 Take 15 mL by mouth in the morning. 473 mL 1 01/16/2024 5:09 PM EDT 4 Active oxyCODONE HCl 5 MG Oral Tablet (Oxy IR) Take 1 Tablet by mouth every 4 hours as needed for Pain, Moderate. 4 Tablet 4 Active Additional Information Patient not taking.Informant: At Discharge, Reported on 01/02/2024 Triamcinolone Acetonide 0.1 % External Cream (Aristocort) Apply to rash on legs twice daily for 2 weeks and then weekends as needed 80 g 1 02/08/2024 4:18 PM EDT 4 Active Trulicity 0.75 MG/0.5ML Subcutaneous Solution Pen-injector (Dulaglutide) Inject 0.75 mg under the skin once a week. 6 mL 3 04/17/2024 4:47 PM EDT 4 Active Pregabalin 150 MG Oral Capsule (Lyrica)Indicati ons:Chronic pain syndrome Take 1 Capsule by mouth in the morning and 1 Capsule at noon and 1 Capsule before bedtime. 90 Capsule 3 05/29/2024 1:11 PM EST 4 Active hydrOXYzine HCl 25 MG Oral Tablet Take 1 Tablet by mouth 4 times a day as needed for Anxiety. 30 Tablet 5 05/29/2024 1:11 PM EST 4 Active Levothyroxine Sodium 50 MCG Oral Tablet (Levoxyl) Take 1 Tablet by mouth daily first thing in the morning. (at least 30 min prior to breakfast or other meds) 90 Tablet 06/05/2024 10:24 AM EST 4 Active Omeprazole 20 MG Oral Capsule Delayed Release (PriLOSEC) Take 1 Capsule by mouth daily. 30 Capsule 5 06/05/2024 10:24 AM EST 4 Active Dulaglutide 0.75 MG/0.5ML Subcutaneous Solution Auto-injector (Trulicity) Inject 0.75mg under the skin once a week. 2 mL 3 06/05/2024 10:24 AM EST 4 Active documented as of this encounter (statuses as of 06/12/2024) Active Problems Problem Noted Date Diagnosed Date Type 2 diabetes mellitus wit h hemoglobin A1c goal of less than 7.0% 12/15/2023 Mood disorder 07/25/2023 Food insecurity 02/23/2021 Overview: Per [facility] Protocol Amenorrhea, secondary 10/16/2020 HTN, goal below 140/90 10/01/2020 Endometriosis of ovary 10/01/2020 Advanced directives, counseling/discussion 04/22 Overview (03/26/2014): Does the patient have an advance directive? Yes, patient instructed to provide copy of Advance Directive for provider to review and to be scanned into Electronic Medical Record Encounter for gynecological examination (general) (routine) without abnormal findings 09/09/2016 Benign essential hypertension 09/09/2016 History of delivery 09/09/2016 History of recurrent miscarriages, not currently 09/09/2016 Hypothyroidism 09/09/2016 Current tobacco use 09/09/2016 History of depression 09/09/2016 History of gestational diabetes 09/09/2016 Female infertility 09/09/2016 Irregular menstrual cycle 12/17/2015 Chronic female pelvic pain 12/17/2015 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 An early 1 hour GCT has been recommended and ordered. Tobacco use disorder 09/16/2010 Overview (09/16/2010): Smokes 6-8 cig/day. Pt has been encouraged to quit smoking for her and her baby's health. Adjustment disorder with depressed mood 08/24/19 Overview (09/16/2010): As of 09/15/10 pt denies homicidal or suicidal ideation. Pt is stable on Celexa 20 mg daily. Family Hx Cleft Lip/Palate and NTD 08/24/2010 Overview (09/16/2010): As of 09/15/10 at 17 3/7 weeks, several U/S's have not clearly identified the lip. No abnormal anatomy noted. F/U U/S is indicated to verify normal anatomy through completion of a targeted anatomy U/S. Migraine without aura 08/11/2004 Overview (09/16/2010): Pt on has had some relief on Fioricet and requests a refill. Order being sent. documented as of this encounter (statuses as of 06/12/2024) Resolved Problems Problem Noted Date Diagnosed Date Resolved Date Prediabetes 12/30/2020 12/29/2023 Overview: Per Prediabetes protocol History of gestational diabe shima in prior , currently 04/09/2014 11/29/2015 Headache in 04/09/20142015 Tobacco use in 04/09/201407/2015 History of delivery, currently 04/09/2014 11/29/2015 History of cerclage, currently 04/09/2014 11/29/2015 Supervision of high-risk pre gnancy of elderly multigravida 04/09/2014 12/17/2015 Depression complicating , antepartum 04/09/20 14 12/17/2015 No advance directives 09/13/20122012 Encounter to determine viability of 09/13/2012 11/29/2015 ADVANCE DIRECTIVE INFORMATION 10/15/2010 10/15/2010 Overview (10/15/2010): No, Advance Directive brochure given to patient at prior appt. ADVANCE DIRECTIVE INFORMATION 08/24/2010 08/24/2010 Overview (01/08/2009): No, Advance Directive brochure given Supervision of other high-risk 08/24/2010 12/17/2015 Overview (10/21/2015): ICD-10 update of inactive term Antepartum hemorrhage from placenta previa 08/24/2010 10/25/2010 Overview (09/16/2010): As of 09/15/10, this assessment, which was seen on U/S from 08/24/10 @ 14 2/7 weeks is noted to be resolved. The posterior/fundal placenta is noted to be > 2 cm from the internal cervical os. Pt denies vaginal bleeding. Given the resolution of this finding, she is now an appropriate candidate for a prophylactic cerclage d/t her Hx/o Cervical Incompetence. Antepartum abnormal glucose tolerance of mother 01/14/2009 08/24/2010 Mental disorders of mother, complicating , childbirth, or the puerperium, unspecified as to episode of care 12/25/20082010 Overview (12/25/2008): Hx pp depression THREAT LABOR NEC-ANTEPAR 11/30/200501/2011 Overview (12/25/2008): Hx of delivery at 30 and 35 weeks Insomnia 08/11/2004 08/24/2010 Overview (04/18/2017): ICD-10 update of inactive term documented as of this encounter (statuses as of 06/12/2024) Immunizations Name Administration Dates Next Due DTaP Dipth/Tet/Acell Pertussis (Infanrix), Peds 11/21/2000 Hepatitis B, 0-19 yrs 11/21/2000 Pneumococcal Conjugate Vaccine, 20-valent (Prevn ar20) 04/23/2023 Pneumococcal Conjugate Vaccine, 7 Valent 001 Seasonal Influenza, PF, 6 M & above, IM , (FluLaval or Fluzone) 04/23/2023,05/02/2018 TDAP (age 10 and older)(Boostrix) 05/02/2018 documented as of this encounter Social History Tobacco Use Types Packs/Day Years Used Date Smoking Tobacco: Every Day Cigarettes 0.3 12 Smokeless Tobacco: Never Comments:down to 6 or 8 a da y 09/09/2016 Alcohol Use Standard Drinks/Week Comments Not Currently 0 (1 standard drink = 0.6 oz pur e alcohol) Very rare PHQ-2 Answer Date Recorded PHQ Adult Total Score 0 12/15/2023 Hunger Vital Sign Answer Date Recorded Within the past 12 months, y ou worried that your food would run out before you got the money to buy more. Sometimes true Within the past 12 months, t he food you bought just didn't last and you didn't have money to get more. Often true Childcare Answer Date Recorded Do you feel overwhelmed with taking care of a child, family member or friend? No 06/04/2024 Does your family need help f inding childcare? (Household - for ages 0-17 years) Not on file 06/04/2024 Clothing Answer Date Recorded Have you been unable to get clothing when it was really needed? No 06/04/2024 Is your family able to get c lothes or diapers when needed? (Household - for ages 0-17 years) Not on file 06/04/2024 Personal Safety Answer Date Recorded Do you feel unsafe or have concerns for your saf ety? No 06/04/2024 Do you have concerns for you r family's safety? (Household - for ages 0-17 years) Not on file 06/04/2024 Utilities Answer Date Recorded Do you have trouble paying y our heating, water, or electric bill? No 06/04/2024 Is your family able to pay t he heat, water, or electric bill? (Household - for ages 0-17 years) Not on file 06/04/2024 Does your family have access to good internet? (Household - for ages 0-17 years) Not on file 06/04/2024 Employment Status Answer Date Recorded Are you unemployed or without regular income? No 06/04/2024 Does the household have a re gular source of income? (Household - for ages 0-17 years) Not on file 06/04/2024 Social Connections Answer Date Recorded How often do you feel lonely or isolated from those around you? Sometimes 06/04/2024 Financial Resource Strain Answer Date R ecorded Do you have any trouble payi ng for your medications, or do you think you might in the future? No 06/04/2024 Does your family have troubl e paying for medicine? (Household - for ages 0-17 years) Not on file 06/04/2024 Transportation Needs Answer Date Record ed READ ONLY Do you have troubl e getting a ride to medical visits or work? Never True 06/04/2024 Does your family have a hard time getting a ride to doctors visits? (Household - for ages 0-17 years) Not on file 06/04/2024 Has lack of transportation k ept you from medical appointments, meetings, work, or from getting things needed for daily living? Check all that apply. Yes, it has kept me from medical appointments 06/04/2024 Do you (or your family) have trouble finding or paying for a ride (transportation)? (Household - for ages 0-17 years) Not on file 06/04/2024 Housing Stability Answer Date Recorded Do you currently live in a s helter or have no steady place to sleep at night? No 06/04/2024 READ ONLY Do you think you a re at risk of becoming homeless? No 06/04/2024 Does your family worry about paying for your home or becoming homeless? (Household - for ages 0-17 years) Not on file 1 08/04/2023 Are you homeless or worried that you might be in the future? No 06/04/2024 Are you (or your family) dede eless or worried that you might be in the future? (Household - for ages 0-17 years) Not on file Food Insecurity Answer Date Recorded Do you need food for this week? Yes 06/04/2024 Are you able to get enough f ood for your family? (Household - for ages 0-17 years) Not on file 06/04/2024 Does your family need food t his week? (Household - for ages 0-17 years) Not on file 06/04/2024 Do you always have enough fo od for your family? (Household - for ages 0-17 years) Not on file 06/04/2024 Comments No Sex and Gender Information Value Date Recorded Sex Assigned at Female 03/17/2023 2:10 PM EDT Legal Sex Female 6:10 AM EST Gender Identity Female 03/17/2023 2:10 PM EDT Sexual Orientation Straight 03/17/2023 2: 10 PM EDT Occupation Industry Job Start Date Job End Date homemaker Not on file Not on file Not on file documented as of this encounter Miscellaneous Notes * Telephone Encounter - Markus Whitaker - 06/12/2024 1:39 PM EST Will schedule once patient reads [employer] message * Telephone Encounter - Monique Solorio LPN - 06/12/2024 10:17 AM EST Portal message sent to patient * Telephone Encounter - Alexandria Tolliver OSA - 06/11/2024 3:51 PM EST Is patient aware of this before we call * Addendum Note - Doug Jane PA-C - 06/11/2024 2:52 PM ESTAddended by: DOUG JANE on: 06/11/2024 02:52 PM Modules accepted: Orders * Telephone Encounter - Doug Jane PA-C - 06/11/2024 2:51 PM EST Abnormal mammogram (Primary) - US BREAST LIMITED RIGHT; Future; Expected date: 12/09/2024 Ordered to be completed in 6 months. Ramon * Telephone Encounter - Rios Benson OSA - 06/07/2024 1:05 PM EST Hello- The radiologist discovered an unexpected or indeterminate finding on Mary Aguilar ([id number]) and asks that you review the following report. Study Type: MAMMOGRAM DIAGNOSTIC JEREL BILATERAL Date of Study: 06/07/2024 Impression Left MAMMOGRAM DIAGNOSTIC JEREL BILATERAL US BREAST LIMITED LEFT No sonographic correlate for asymmetry in the left retroareolar region. Given patient's history of nipple discharge, consider further evaluation with breast clinic consultation. Right MAMMOGRAM DIAGNOSTIC JEREL BILATERAL US BREAST LIMITED RIGHT Findings are probably benign. BI-RADS Category: 3 - Probably Benign. Recommendation Resume annual screening mammography is recommended for the left breast. Given patient's history of nipple discharge, consider further evaluation with breast clinic consultation. Ultrasound in 6 months is recommended for the right breast. Digital breast tomosynthesis was performed. This digital mammogram has been analyzed with the computer aided detection system. Breast tissue can be either dense or not dense. Dense tissue makes it harder to find breast cancer on a mammogram and also raises the risk of developing breast cancer. Your breast tissue is dense. Insome people with dense tissue, other imaging tests in addition to a mammogram may help find cancers. Talk to your healthcare provider about breast density, risks for breast cancer, and your individual situation. Please respond to this encounter to acknowledge receipt of this message and take responsibility to ensure this report is reviewed. Thank you, LAURIE Barry Client Service Rep [facility] documented in this encounter Plan of Treatment Upcoming Encounters Date Type Department Care Team (Late st Contact Info) Description 06/13/2024 9:20 AM EST Telemedicine Pharmacy [address] [address] Pharmacist2, [facility] [address] [address] 06/15/2024 6:10 PM EST Pharmacy Pharmacy, [facility] [address] [place] [address] Pharmacist2, [facility] [address] [place] [address] 03/14/2025 10:15 AM EDT Office Visit Gynecology/Obstetrics [facility] [address] [place] [address] Dayana Mann CNM [address] [place], [place] [id number] Scheduled Orders Name Type Priority Associated Diagnoses Orde r Schedule US BREAST LIMITED RIGHT Medical Imaging Routine Abnormal mammogram Expected: 12/09/2024, Expires: 07/11/2025 Health Maintenance Due Date Last Done Comments DISCUSS TOBACCO CESSATION (REFER TO SMARTSET #0631) 1975 Diabetic Eye Exam 11/03/1995 Diabetic Foot Exam 11/03/1995 Hepatitis B Vaccine (1 of 3 - 19+ 3-dose series) 1996 11/21/2000 HPV/Co-Test 11/03/2007 TSH 02/06/2022 02/06/2021, 09/15, 04/21/2018, Additional history exists Cologuard 2022 Colonoscopy 2022 Colorectal Cancer Screening 2022 Fecal Occult Blood Test 2022 Sigmoidoscopy 2022 Cervical Cancer Screening 10/17/2023 Pap Smear 10/17/2023 10/16/2020, 05/0 11/2015, 03/26/2014, Additional history exists COVID-19 Vaccine ( season) 2024 Influenza Vaccine (FLU shot) (#1) 2024 04/23/2023, 05/02/2018 Depression Screening 12/14/2024 12/15/2023 GFR 12/30/2024 12/31/2023, 02/17, 10/01/2020, Additional history exists Mammogram 06/07/2025 06/07/2024, 04/27/2023 Lipid Panel 03/17/2028 03/17/2023, 10/01/2020 DTap/Tdap Vaccines (3 - Td or Tdap) 05/02/2028 05/02/2018, 11/21/2000 Pneumococcal Vaccine: Pediatrics (0 to 5 Years) and At-Risk Patients (6 to 64 Years) Completed 04/23/2023 HPV (Gardasil) Vaccine Aged Out No lo nger eligible based on patient's age to complete this topic MENINGOCOCCAL (MENACTRA/MENVEO) Aged Out No longer eligible based on patient's age to complete this topic documented as of this encounter Medical Devices Not on filedocumented as of this encounter Visit Diagnoses Diagnosis Abnormal mammogram- Primary Abnormal mammogram, unspecified documented in this encounter Advance Directives * Full Code (Latest Code Status on File) Date Activated Date Inactivated Comments 04/09/2014 3:32 PM 04/09/2014 9:56 PM This order r eflects the patients wishes and were consensually agreed upon. * Full Code Date Activated Date Inactivated Comments 05/13/2012 7:54 PM 05/15/2012 8:43 PM Question Answer Comments Discussion of Advance Directives occurred with: Not Discussed Does the patient have a Living Will? No Does the patient have Health Care Power of Attor yumi? No * Full Code Date Activated Date Inactivated Comments 09/16/2010 11:55 AM 09/17/2010 2:51 AM This order re flects the patients wishes and were consensually agreed upon. * Full Code Date Activated Date Inactivated Comments 02/14/2009 7:04 PM 02/15/2009 11:03 PM This order r eflects the patients wishes and were consensually agreed upon. Care Teams Cotton Cleaner Relationship Specialty Start Date End Date Doug Jane PA-C [address] [place] [id number] PCP - General Physician Laser Beam Machine Operator 06/14/23 documented as of this encounter
--- OUTSIDE RECORDS SUMMARY | 2024-09-07 23:46 | External Medical Summary | Summary of Care ---
Author Name Unknown Organization [facility] Address [address] [place] [address] Phone [phone] Care Team Providers Care Rum Processing Operator Name Role Phone Doug Hong PA-C Primary Care Provider [phone] Reason for Visit * Reason Comments Medication Refill Encounter Details Date Type Department Care Team (Late st Contact Info) Description 06/19/2024 Refill Family Practice/Pediatrics[address] [place] [address] Doug Hong PA-C [address] [place] [address] [phone] Allergies Active Allergy Reactions Criticality Noted Date Comments Aspirin Nausea/vomiting Low 05/13/2012 Latex Rash Low 05/13/2012 Metformin 03/17/2023 Extreme diarrhea Niacin 03/17/2023 Throat swelling documented as of this encounter (statuses as of 06/21/2024) Medications OneTouch Delica Plus [id number] use daily as directed 100 Each 11 [...] 3 04/26/2024 2:27 PM EDT 4 Active acetaZOLAMIDE 250 MG Oral [...] Active Dulaglutide 0.75 MG/0.5ML Subcutaneous Solution Auto-injector (thinkingphones) Inject 0.75mg under the skin once a week. 2 mL 3 06/05/2024 10:24 AM EST 4 Active FreeStyle Belia 3 Plus Sensor Use to monitor blood sugars daily. 6 Each 3 4 Active documented as of this encounter (statuses as of 06/21/2024) Active Problems Problem Noted Date Diagnosed Date Type 2 diabetes mellitus wit h hemoglobin A1c goal of less than 7.0% 12/15/2023 Mood disorder 07/25/2023 Food insecurity 02/23/2021 Overview: Per [facility] Protocol Amenorrhea, secondary 10/16/2020 HTN, goal [...] health. Adjustment disorder with depressed mood 08/24/19 11 Overview (09/16/2010): As of 09/15/10 pt denies [...] as of this encounter (statuses as of 06/21/2024) Resolved Problems Problem Noted Date Diagnosed Date [...] as of this encounter (statuses as of 06/21/2024) Immunizations Name Administration Dates Next Due Pneumococcal Conjugate Vaccine, 20-valent (Prevn ar20) 04/23/2023 Seasonal Influenza, PF, 6 M & above, [...] encounter Miscellaneous Notes * Telephone Encounter - Tika Soni RPh - 06/21/2024 10:29 AM EST Refused Prescriptions: Disp Refills Levothyroxine Sodium 50 MCG Oral Tablet (L*90 Tab*0 Sig: Take 1Tablet by mouth daily first thing in the morning. (at least 30 min prior to breakfast or other meds)Refused By: TIKA SONI for Refusal: Too soon documented in this encounter Plan of Treatment Upcoming Encounters Date Type Department Care Team (Late st Contact Info) Description 12/13/2024 10:30 AM EDT Appointment Radiology, [place] [address] 03/14/2025 10:15 AM EDT Office Visit Gynecology/Obstetrics [facility] [address] [place] [address] Dayana Mann CNM [address] [place] [address] Health Maintenance Due Date Last Done Comments DISCUSS TOBACCO CESSATION (REFER TO SMARTSET #1842) 1975 Diabetic Eye Exam 11/03/1995 Diabetic Foot [...] Depression Screening 12/14/2024 12/15/2023 GFR 12/30/2024 12/31/2023, 08/3 07/2022, 10/01/2020, Additional history exists Mammogram 06/07/2025 06/07/2024, [...] Not on filedocumented as of this encounter Advance Directives * Full Code [...] and were consensually agreed upon. Care Teams Rum Processing Operator Relationship Specialty Start Date End Date Doug Hong PA-C [address] [place] [id number] PCP - General Physician School Speech Language Pathologist 06/14/23 documented as of this encounter
--- OUTSIDE RECORDS SUMMARY | 2024-09-07 23:46 | External Medical Summary | Summary of Care ---
Author Name Unknown Organization [facility] Address [address] [place] [address] Phone [phone] Care Team Providers Care Machine Stuffer Automatic Name Role Phone Doug Jane PA-C Primary Care Provider +1 [phone] Reason for Visit * Reason Comments Medication Refill Encounter Details Date Type Department Care Team ([facility] Contact Info) Description 06/19/[address] [phone] Doug Jane PA-C [address] [place] [address] Allergies Active Allergy Reactions Criticality Noted Date Comments Aspirin Nausea/vomiting Low 05/13/2012 Latex Rash Low 05/13/2012 Metformin 03/17/2023 Extreme diarrhea Niacin 03/17/2023 Throat swelling documented as of this encounter (statuses as of 06/20/2024) Medications OneTouch Delica Plus [id number] use daily as directed 100 Each 11 12/15/2023 12:56 PM EDT 04/08/20 23 Active OneTouch Verio w/Device Kit Use up to 4 times a day E11.9 1 Kit 04/12/2023 4:45 PM EDT 04/08/20 23 Active OneTouch Verio In Vitro Strip (Glucose Blood) Use up to 4 times a day E11.9 100 Strip 11 12/15/2023 12:56 PM EDT 04/08/20 23 Active FLUoxetine HCl 40 MG Oral Capsule (PROzac)Indicati ons:Mood disorder (HCC) Take 1 Capsule by mouth in the morning. 90 Capsule 3 04/26/2024 2:27 PM EDT 07/25/19 24 Active acetaZOLAMIDE 250 MG Oral Tablet (Diamox) Take 1 Tablet by mouth in the morning and 1 Tablet before bedtime. 60 Tablet 2 11/17/2023 10:06 AM EDT 09/12/19 24 Active Furosemide 20 MG Oral Tablet (Lasix)Indicatio ns:Leg edema Take 1 Tablet by mouth daily as needed for Other (leg swelling). 30 Tablet 5 11/17/2023 10:06 AM EDT 10/13/19 24 Active Lisinopril 40 MG Oral TabletIndication s:HTN, goal below 140/90 Take 1 Tablet by mouth in the morning. 90 Tablet 3 03/28/2024 11:12 AM EDT 12/15/19 24 Active traZODone HCl 100 MG Oral Tablet (Desyrel)Indicat ions:Insomnia, unspecified type Take 2 Tablets by mouth at bedtime. 120 Tablet 5 04/17/2024 4:47 PM EDT 12/15/19 24 Active Potassium Chloride 20 MEQ/15ML (10%) Oral SolutionIndicati ons:HTN, goal below 140/90 Take 15 mL by mouth in the morning. 473 mL 1 01/16/2024 5:09 PM EDT 12/15/19 24 Active oxyCODONE HCl 5 MG Oral Tablet (Oxy IR) Take 1 Tablet by mouth every 4 hours as needed for Pain, Moderate. 4 Tablet 12/31/19 24 Active Additional Information Patient not taking.Informant: At Discharge, Reported on 01/02/2024 Triamcinolone Acetonide 0.1 % External Cream (Aristocort) Apply to rash on legs twice daily for 2 weeks and then weekends as needed 80 g 1 02/08/2024 4:18 PM EDT 01/06/20 24 Active Trulicity 0.75 MG/0.5ML Subcutaneous Solution Pen-injector (Dulaglutide) Inject 0.75 mg under the skin once a week. 6 mL 3 04/17/2024 4:47 PM EDT 01/09/20 24 Active Pregabalin 150 MG Oral Capsule (Lyrica)Indicati ons:Chronic pain syndrome Take 1 Capsule by mouth in the morning and 1 Capsule at noon and 1 Capsule before bedtime. 90 Capsule 3 05/29/2024 1:11 PM EST 02/15/20 24 Active hydrOXYzine HCl 25 MG Oral Tablet Take 1 Tablet by mouth 4 times a day as needed for Anxiety. 30 Tablet 5 05/29/2024 1:11 PM EST 04/25/20 24 Active Levothyroxine Sodium 50 MCG Oral Tablet (Levoxyl) Take 1 Tablet by mouth daily first thing in the morning. (at least 30 min prior to breakfast or other meds) 90 Tablet 06/05/2024 10:24 AM EST 06/01/20 24 Active Omeprazole 20 MG Oral Capsule Delayed Release (PriLOSEC) Take 1 Capsule by mouth daily. 30 Capsule 5 06/05/2024 10:24 AM EST 05/30/20 24 Active Dulaglutide 0.75 MG/0.5ML Subcutaneous Solution Auto-injector ([employer]) Inject 0.75mg under the skin once a week. 2 mL 3 06/05/2024 10:24 AM EST 05/29/20 24 Active FreeStyle Belia 3 Sensor Use as directed. Use to monitor blood sugars daily DX E11.9 6 Each 3 06/20/20 24 Active FreeStyle Belia 3 Sensor Use as directed. Use to monitor blood sugars daily DX E11.9 6 Each 3 03/13/2024 11:43 AM EDT 07/29/19 24 024 Discontin ued(Refil l) documented as of this encounter (statuses as of 06/20/2024) Active Problems Problem Noted Date Diagnosed Date Type 2 diabetes mellitus wit h hemoglobin A1c goal of less than 7.0% 12/15/2023 Mood disorder 07/25/2023 Food insecurity 02/23/2021 Overview: Per [facility] Protocol Amenorrhea, secondary 10/16/2020 HTN, goal [...] as of this encounter (statuses as of 06/20/2024) Resolved Problems Problem Noted Date Diagnosed Date [...] as of this encounter (statuses as of 06/20/2024) Immunizations Name Administration Dates Next Due Pneumococcal [...] encounter Miscellaneous Notes * Telephone Encounter - Jennifer Mendoza RPh - 06/20/2024 7:31 AM ESTSigned Prescriptions: Disp Refills FreeStyle Belia 3 Sensor 6 Each 3 Sig: Use as directed. Use to monitor blood sugars daily DX E11.9Authorizing Provider: DOUG JANE User: JENNIFER MENDOZA- documented in this encounter Plan of Treatment Upcoming Encounters Date Type Department Care Team (Late st Contact Info) Description 12/13/2024 10:30 AM EDT Appointment Radiology, [facility] [address] [place] [address] 03/14/2025 10:15 AM EDT Office Visit Gynecology/Obstetrics [facility] [address] [place] [address] Dayana Mann CN [address] [place] [address] Health Maintenance Due Date Last Done Comments DISCUSS TOBACCO CESSATION (REFER TO SMARTSET #[id number]) 1975 Diabetic Eye Exam 11/03/1995 Diabetic Foot Exam 11/03/1995 Hepatitis B Vaccine (1 of 3 - 19+ 3-dose series) 1996 11/21/2000 HPV/Co-Test 11/03/2007 TSH 02/06/2022 02/06/2021, 09/15, 04/21/2018, Additional history exists Cologuard 2022 Colonoscopy 2022 Colorectal Cancer Screening 2022 Fecal Occult Blood Test 2022 Sigmoidoscopy 2022 Cervical Cancer Screening 10/17/2023 Pap Smear 10/17/2023 10/16/2020, 0511/2015, 03/26/2014, Additional history exists COVID-19 Vaccine ( season) 2024 Influenza Vaccine (FLU shot) (#1) 2024 04/23/2023, 05/02/2018 Depression Screening 12/14/2024 12/15/2023 GFR 12/30/2024 12/31/2023, 08/07/2022, 10/01/2020, Additional history exists Mammogram 06/07/2025 06/07/2024, [...] and were consensually agreed upon. Care Teams Machine Stuffer Automatic Relationship Specialty Start Date End Date Doug Jane PA-C [address] [place], [place] [address] [place] [address] PCP - General Physician Psychologists 06/14/23 documented as of this encounter
--- OUTSIDE RECORDS SUMMARY | 2024-09-07 23:46 | External Medical Summary | Summary of Care ---
Author Name Unknown Organization [facility] Address [address] [place] [address] Phone [phone] Care Team Providers Care Vehicle Sales Professional Name Role Phone Doug Jane PA-C Primary Care Provider [phone]- [phone] Reason for Visit * Reason Onset Date Comments Test Results 06/07/2024 Unexpected or In determinate Result Encounter Details Date Type Department Care Team ([facility] st Contact Info) Description 06/07/2024 Telephone Laboratory, [place] [address] [place] [address] Doug Jane PA-C [address] [place] [address] Test Results (Unexpected or Indeterminate ... Allergies Active Allergy Reactions Criticality Noted Date Comments Aspirin Nausea/vomiting Low 05/13/2012 Latex Rash Low 05/13/2012 Metformin 03/17/2023 Extreme diarrhea Niacin 03/17/2023 Throat swelling documented as of this encounter (statuses as of 06/13/2024) Medications OneTouch Delica Plus [id number] use daily as directed 100 Each 11 [...] as of this encounter (statuses as of 06/13/2024) Active Problems Problem Noted Date Diagnosed Date Type 2 diabetes mellitus wit h hemoglobin A1c goal of less than 7.0% 12/15/2023 Mood disorder 07/25/2023 Food insecurity 02/23/2021 Overview: Per [facility] Protocol Amenorrhea, secondary 10/16/2020 HTN, goal [...] as of this encounter (statuses as of 06/13/2024) Resolved Problems Problem Noted Date Diagnosed Date [...] as of this encounter (statuses as of 06/13/2024) Immunizations Name Administration Dates Next Due DTaP [...] * Telephone Encounter - Markus Whitaker - 06/13/2024 11:43 AM EST Spoke to patient, appointment scheduled * Telephone Encounter - Markus Whitaker - 06/12/2024 1:39 PM EST Will schedule once patient reads [facility] message * Telephone Encounter - Monique Solorio [...] unexpected or indeterminate finding on Mary Aguilar ([id number]) and asks that you review the following [...] Thank you, LAURIE [place] Client Service Rep [facility] [place] documented in this encounter Plan of Treatment Upcoming Encounters Date Type Department Care Team (Late st Contact Info) Description 06/15/2024 6:10 PM EST Pharmacy Pharmacy, [facility] [address] [facility] [place] [address] Pharmacist2, [facility] [address] [facility] [place] [address] 12/13/2024 10:30 AM EDT Appointment Radiology, [facility] [address] [place], [place] [id number] 03/14/2025 10:15 AM EDT Office Visit Gynecology/Obstetrics [facility] [address] [place], [place] [phone] Dayana Mann CN [address] [place], [place] [phone] Scheduled Orders Name Type Priority Associated Diagnoses Orde r Schedule US BREAST LIMITED RIGHT Medical Imaging Routine Abnormal mammogram Expected: 12/09/2024, Expires: 07/11/2025 Health Maintenance Due Date Last Done Comments DISCUSS TOBACCO CESSATION (REFER TO SMARTSET #6549) 1975 Diabetic Eye Exam 11/03/1995 Diabetic Foot [...] and were consensually agreed upon. Care Teams Vehicle Sales Professional Relationship Specialty Start Date End Date Doug Jane PA-C [address] [place] [id number] PCP - General Physician Armature Winder Repair Helper 06/14/23 documented as of this encounter
--- OUTSIDE RECORDS SUMMARY | 2024-09-07 23:46 | External Medical Summary | Summary of Care ---
Author Name Unknown Organization [facility] Address [address] [place] [address] Phone [phone] Care Team Providers Care Motor Coach Bus Driver Name Role Phone Doug Jane PA-C Primary Care Provider [phone]- [phone] Reason for Visit * Reason Onset Date Comments Test Results 06/07/2024 Unexpected or In determinate Result Encounter Details Date Type Department Care Team ([facility] st Contact Info) Description 06/07/2024 Telephone Laboratory, [place] [address] [place] [address] Doug Jane PA-C [address] [place] [address] Test Results (Unexpected or Indeterminate ... Allergies Active Allergy Reactions Criticality Noted Date Comments Aspirin Nausea/vomiting Low 05/13/2012 Latex Rash Low 05/13/2012 Metformin 03/17/2023 Extreme diarrhea Niacin 03/17/2023 Throat swelling documented as of this encounter (statuses as of 06/12/2024) Medications OneTouch Delica Plus [id number] use daily as directed 100 Each 11 [...] disorder 07/25/2023 Food insecurity 02/23/2021 Overview: Per [facility] Protocol Amenorrhea, secondary 10/16/2020 HTN, goal [...] encounter Miscellaneous Notes * Telephone Encounter - Monique Solorio LPN [...] an unexpected or indeterminate finding on Mary Thomasinger ([id number]) and asks that you review the following [...] reviewed. Thank you, LAURIE [place] Client Service [facility] documented in this encounter Plan of Treatment Upcoming Encounters Date Type Department Care Team (Late st Contact Info) Description 06/13/2024 9:20 AM EST Telemedicine Pharmacy [address] [phone] Pharmacist2, [facility] [address] [address] 06/15/2024 6:10 PM EST Pharmacy Pharmacy, [facility] [place] [address] [facility] [place] [address] Pharmacist2, [facility] [address] [facility] [place] [address] 03/14/2025 10:15 AM EDT Office Visit Gynecology/Obstetrics [facility] [address] [place] [address] Dayana Mann CN [address] [place], [place] [phone] Scheduled Orders Name Type Priority Associated Diagnoses Orde r Schedule US BREAST LIMITED RIGHT Medical Imaging Routine Abnormal mammogram Expected: 12/09/2024, Expires: 07/11/2025 Health Maintenance Due Date Last Done Comments DISCUSS TOBACCO CESSATION (REFER TO SMARTSET #1737) 1975 Diabetic Eye Exam 11/03/1995 Diabetic Foot Exam 11/03/1995 Hepatitis B Vaccine (1 of 3 - 19+ 3-dose series) 1996 11/21/2000 HPV/Co-Test 11/03/2007 TSH 02/06/2022 02/06/2021, 09/15, 04/21/2018, Additional history exists Cologuard 2022 Colonoscopy 2022 Colorectal Cancer Screening 2022 Fecal Occult Blood Test 2022 Sigmoidoscopy 2022 Cervical Cancer Screening 10/17/2023 Pap Smear 10/17/2023 10/16/2020, 05/0 11/2015, 03/26/2014, Additional history exists COVID-19 Vaccine (1 - 2024-25 season) 2024 Influenza Vaccine (FLU shot) (#1) 2024 04/23/2023, 05/02/2018 Depression Screening 12/14/2024 12/15/2023 GFR 12/30/2024 12/31/2023, 0807/2022, 10/01/2020, Additional history exists Mammogram 06/07/2025 06/07/2024, [...] and were consensually agreed upon. Care Teams Motor Coach Bus Driver Relationship Specialty Start Date End Date Doug Jane PA-C NPI: [id number] [place] [address] PCP - General Physician Sewing Machine Assembler 06/14/23 documented as of this encounter
--- OUTSIDE RECORDS SUMMARY | 2024-09-07 23:46 | External Medical Summary | Summary of Care ---
Author Name Unknown Organization [facility] Address [address] [place] [address] Phone [phone] Care Team Providers Care Housekeeping Supervisor Name Role Phone Doug Jane PA-C Primary Care Provider [phone] Reason for Visit * Reason Comments Medication Refill Encounter Details Date Type Department Care Team (Late st Contact Info) Description 06/23/2024 Refill Pharmacy, [facility] [address] [facility] [place] [address] Doug Jane PA-C [address] [place], [place] [phone] Chronic pain syndrome Allergies Active Allergy Reactions Criticality Noted Date Comments Aspirin Nausea/vomiting Low 05/13/2012 Latex Rash Low 05/13/2012 Metformin 03/17/2023 Extreme diarrhea Niacin 03/17/2023 Throat swelling documented as of this encounter (statuses as of 06/25/2024) Medications OneTouch Delica Plus [id number] use daily as directed 100 Each 11 [...] 04/17/2024 4:47 PM EDT 01/09/20 24 Active hydrOXYzine HCl 25 MG Oral [...] Active Dulaglutide 0.75 MG/0.5ML Subcutaneous Solution Auto-injector ([employer]) Inject 0.75mg under the skin once a week. 2 mL 3 06/05/2024 10:24 AM EST 05/29/20 24 Active FreeStyle Belia 3 Plus Sensor Use to monitor blood sugars daily. 6 Each 3 06/20/20 24 Active Pregabalin 150 MG Oral Capsule (Lyrica)Indicati ons:Chronic pain syndrome Take 1 Capsule by mouth in the morning and 1 Capsule at noon and 1 Capsule before bedtime. 90 Capsule 3 06/25/20 24 Active Pregabalin 150 MG Oral Capsule (Lyrica)Indicati ons:Chronic pain syndrome Take 1 Capsule by mouth in the morning and 1 Capsule at noon and 1 Capsule before bedtime. 90 Capsule 3 05/29/2024 1:11 PM EST 02/15/20 24 024 Discontin ued(Refil l) documented as of this encounter (statuses as of 06/25/2024) Active Problems Problem Noted Date Diagnosed Date Type 2 diabetes mellitus wit h hemoglobin A1c goal of less than 7.0% 12/15/2023 Mood disorder 07/25/2023 Food insecurity 02/23/2021 Overview: Per [facility] Protocol Amenorrhea, secondary 10/16/2020 HTN, goal [...] as of this encounter (statuses as of 06/25/2024) Resolved Problems Problem Noted Date Diagnosed Date [...] as of this encounter (statuses as of 06/25/2024) Immunizations Name Administration Dates Next Due Pneumococcal [...] encounter Miscellaneous Notes * Telephone Encounter - Doug Jane PA-C - 06/25/2024 9:29 AM ESTSigned Prescriptions: Disp Refills Pregabalin 150 MG Oral Capsule (Lyrica) 90 Cap*3 Sig: Take 1 Capsule by mouth in the morning and 1 Capsule at noon and 1 Capsule before bedtime. Authorizing Provider: DOUG JANE * Telephone Encounter - Barbi Sanchez [facility] - 06/25/2024 8:14 AM EST Pending Prescriptions: Disp Refills Pregabalin 150 MG Oral Capsule (Lyrica) 90 Cap*3 Sig: Take 1 Capsule by mouth in the morning and 1 Capsule at noon and 1 Capsule before bedtime. * Telephone Encounter - Ruben England [facility] - 06/25/2024 7:32 AM ESTPending Prescriptions: Disp Refills Pregabalin 150 MG Oral Capsule (Lyrica) 90 Cap*3 Sig: Take 1 Capsule by mouth in the morning and 1 Capsule at noon and 1 Capsule before bedtime. documented in this encounter Plan of Treatment Upcoming Encounters Date Type Department Care Team (Late st Contact Info) Description 12/13/2024 10:30 AM EDT Appointment Radiology, [place] [id number] [place] [address] 03/14/2025 10:15 AM EDT Office Visit Gynecology/Obstetrics [facility] [address] [place] [address] Dayana Mann CNM [address] [place] [address] Health Maintenance Due Date Last Done Comments DISCUSS TOBACCO CESSATION (REFER TO SMARTSET #2329) 1975 Diabetic Eye Exam 11/03/1995 Diabetic Foot [...] as of this encounter Visit Diagnoses Diagnosis Chronic pain syndrome documented in this encounter Advance Directives * [...] and were consensually agreed upon. Care Teams Housekeeping Supervisor Relationship Specialty Start Date End Date Doug Jane PA-C [address] [place] [phone] PCP - General Physician Dental Equipment Repairer 06/14/23 documented as of this encounter
--- OUTSIDE RECORDS SUMMARY | 2024-09-07 23:46 | External Medical Summary | Summary of Care ---
Author Name Unknown Organization [facility] Address [address] [place] [facility] [place] [address] Phone [phone] Care Team Providers Care Heel Former Name Role Phone Doug Hong PA-C Primary Care Provider [phone] Reason for Visit * Reason Comments Anticoagulation Therapy Completed Encounter Details Date Type Department Care Team (Late st Contact Info) Description 06/15/2024 6:10 PM [facility] Pharmacy Pharmacy, [facility] 200 [place] [address] Pharmacist2, [facility] [address] [facility] [place] [address] Chronic pain syndrome* Allergies Active Allergy Reactions Criticality Noted Date Comments Aspirin Nausea/vomiting Low 05/13/2012 Latex Rash Low 05/13/2012 Metformin 03/17/2023 Extreme diarrhea Niacin 03/17/2023 Throat swelling documented as of this encounter (statuses as of 06/15/2024) Medications OneTouch Delica Plus [id number] use daily as directed 100 Each 11 [...] Active Dulaglutide 0.75 MG/0.5ML Subcutaneous Solution Auto-injector ([email or web address]) Inject 0.75mg under the skin once a week. 2 mL 3 06/05/2024 10:24 AM EST 4 Active documented as of this encounter (statuses as of 06/15/2024) Active Problems Problem Noted Date Diagnosed Date Type 2 diabetes mellitus wit h hemoglobin A1c goal of less than 7.0% 12/15/2023 Mood disorder 07/25/2023 Food insecurity 02/23/2021 Overview: Per [facility] Protocol Amenorrhea, secondary 10/16/2020 HTN, goal [...] as of this encounter (statuses as of 06/15/2024) Resolved Problems Problem Noted Date Diagnosed Date [...] as of this encounter (statuses as of 06/15/2024) Immunizations Name Administration Dates Next Due Pneumococcal [...] on file documented as of this encounter Progress Notes * Ruben England RPh - 06/15/2024 6:10 PM EST There are no phone numbers on file. Agree with plan as documented. Ruben Guzmán RPh, CACP, CDE Clinical Pharmacist [facility] 06/15/2024 11:55 AM * Cassidy Hudson', physically impaired teacher - 06/15/2024 8:50 AM EST Mary has not contacted the clinic to schedule/reschedule an appointment for pain management per referral from PCP despite multiple attempts to do so by our team. Requesting patient discharged from [facility] services at this time. Cassidy Hudson Spring Fitter [facility] [address] [place] [address] Dr. Pis[address] Amezcua [phone] 06/15/2024,8:50 AM documented in this encounter Plan of Treatment Upcoming Encounters Date Type Department Care Team (Late st Contact Info) Description 12/13/2024 10:30 AM EDT Appointment Radiology, [facility] [address] [place] [address] 03/14/2025 10:15 AM EDT Office Visit Gynecology/Obstetrics [facility] [address] [place] [address] Dayana Mann CNM [address] [place] [address] Health Maintenance Due Date Last Done Comments DISCUSS TOBACCO CESSATION (REFER TO SMARTSET #1431) 1975 Diabetic Eye Exam 11/03/1995 Diabetic Foot [...] this encounter Visit Diagnoses Diagnosis Chronic pain syndrome- Primary documented in this encounter Advance Directives * [...] and were consensually agreed upon. Care Teams Heel Former Relationship Specialty Start Date End Date Doug Hong PA-C [address] [place], [place] [address] sebastian [address] PCP - General Physician Web Support Engineer 06/14/23 documented as of this encounter
--- OUTSIDE RECORDS SUMMARY | 2024-09-07 23:47 | External Medical Summary | Summary of Care ---
Author Name Unknown Organization [facility] Address [address] [place] [address] Phone [phone] Care Team Providers Care Grocery Deliverer Name Role Phone Doug Hong PA-C Primary Care Provider [phone]- [phone] Reason for Visit * Reason Onset Date Comments Test Results 06/07/2024 Unexpected or In determinate Result Encounter Details Date Type Department Care Team ([facility] st Contact Info) Description 06/07/2024 Telephone Laboratory, [place] [address] [place] [address] Doug Hong PA-C [address] [place] [address] Test Results (Unexpected or Indeterminate ... Allergies Active Allergy Reactions Criticality Noted Date Comments Aspirin Nausea/vomiting Low 05/13/2012 Latex Rash Low 05/13/2012 Metformin 03/17/2023 Extreme diarrhea Niacin 03/17/2023 Throat swelling documented as of this encounter (statuses as of 06/07/2024) Medications OneTouch Delica Plus [id number] use daily as directed 100 Each 11 [...] as of this encounter (statuses as of 06/07/2024) Active Problems Problem Noted Date Diagnosed Date Type 2 diabetes mellitus wit h hemoglobin A1c goal of less than 7.0% 12/15/2023 Mood disorder 07/25/2023 Food insecurity 02/23/2021 Overview: Per [facility] Protocol Amenorrhea, secondary 10/16/2020 HTN, goal [...] as of this encounter (statuses as of 06/07/2024) Resolved Problems Problem Noted Date Diagnosed Date [...] as of this encounter (statuses as of 06/07/2024) Immunizations Name Administration Dates Next Due Pneumococcal [...] encounter Miscellaneous Notes * Telephone Encounter - Rios Benson OSA - 06/07/2024 1:05 PM EST Hello- The radiologist discovered an unexpected or indeterminate finding on Mary Thomasinger ([id number]) and asks that you review the following [...] Thank you, LAURIE Barry Client Service Rep [facility] [place] documented in this encounter Plan of Treatment Upcoming Encounters Date Type Department Care Team ([facility] st Contact Info) Description 06/12/2024 8:20 AM EST Office Visit [address] [address] Doug Hong PA-C [address] [place] [address] 06/15/2024 6:10 PM EST Pharmacy Pharmacy, [facility] 200 [facility] [place] [address] Pharmacist2, [facility] [address] [facility] [place] [address] 03/14/2025 10:15 AM EDT Office Visit Gynecology/Obstetrics [address] [place] [address] Dayana Mann CNM [address] [place] [address] Health Maintenance Due Date Last Done Comments DISCUSS TOBACCO CESSATION (REFER TO SMARTSET #0002) 1975 Diabetic Eye Exam 11/03/1995 Diabetic Foot [...] and were consensually agreed upon. Care Teams Grocery Deliverer Relationship Specialty Start Date End Date Doug Hong PA-C [address] [place] [phone] PCP - General Physician Nibbler Operator 06/14/23 documented as of this encounter
--- OUTSIDE RECORDS SUMMARY | 2024-09-07 23:47 | External Medical Summary | Summary of Care ---
Author Name Unknown Organization [facility] Address [address] [place] [address] Phone [phone] Care Team Providers Care Coating Machine Feeder Name Role Phone Doug Hong PA-C Primary Care Provider Encounter Details Date Type Department Care Team (Latest Contact Info) Description 06/07/2024 9:55 AM EST - 06/07/2024 11:59 PM EST Hospital Encounter Radiology, [facility] [address] [place] [address] Arrived Discharge Disposition: Home - Self Care Allergies Active Allergy Reactions Criticality Noted Date Comments Aspirin Nausea/vomiting Low 05/13/2012 Latex Rash Low 05/13/2012 Metformin 03/17/2023 Extreme diarrhea Niacin 03/17/2023 Throat swelling documented as of this encounter (statuses as of 06/08/2024) Medications OneTouch Delica Plus [id number] use daily as directed 100 Each 11 [...] Active Dulaglutide 0.75 MG/0.5ML Subcutaneous Solution Auto-injector (Giggle) Inject 0.75mg under the skin once a week. 2 mL 3 06/05/2024 10:24 AM EST 4 Active documented as of this encounter (statuses as of 06/08/2024) Active Problems Problem Noted Date Diagnosed Date Type 2 diabetes mellitus wit h hemoglobin A1c goal of less than 7.0% 12/15/2023 Mood disorder 07/25/2023 Food insecurity 02/23/2021 Overview: Per [facility] Protocol Amenorrhea, secondary 10/16/2020 HTN, goal [...] as of this encounter (statuses as of 06/08/2024) Resolved Problems Problem Noted Date Diagnosed Date [...] as of this encounter (statuses as of 06/08/2024) Immunizations Name Administration Dates Next Due Pneumococcal [...] on file documented as of this encounter Plan of Treatment Upcoming Encounters Date Type Department Care Team ([facility] st Contact Info) Description 06/12/2024 8:20 AM EST Office Visit Family [facility] [address] [place] [address] Doug Hong PA-C [address] [place] [address] 06/15/2024 6:10 PM EST Pharmacy Pharmacy, [facility] [address] [facility] [place] [address] Pharmacist2, [facility] [address] [facility] [place] [address] 03/14/2025 10:15 AM EDT Office Visit Gynecology/Obstetrics [facility] [address] [place] [address] Dayana Mann CNM [address] [place] [address] Health Maintenance Due Date Last Done Comments DISCUSS TOBACCO CESSATION (REFER TO SMARTSET #[id number]) 1975 Diabetic Eye Exam 11/03/1995 Diabetic Foot [...] Not on filedocumented as of this encounter Procedures Procedure Name Priority Date/Time Associated Diagnosis Comments MAMMOGRAM DIAGNOSTIC JEREL BILATERAL Routine 06/07/2024 11:20 AM EST Abnormal mammogram documented in this encounter Results * MAMMOGRAM DIAGNOSTIC JEREL BILATERAL (06/07/2024 11:20 AM EST) Anatomical Region Laterality Modality Breast Bilateral Mammography Narrative 06/07/2024 12:26 PM EST Result MAMMOGRAM DIAGNOSTIC JEREL BILATERAL US BREAST LIMITED RIGHT History Abnormal mammogram additional images Films Compared 04/27/2023 MAMMOGRAM DIAGNOSTIC JEREL BILATERAL, 04/27/2023 US BREAST LIMITED LEFT, and 04/27/2023 US BREAST LIMITED RIGHT Findings Left MAMMOGRAM DIAGNOSTIC JEREL BILATERAL The breasts are heterogeneously dense, which may obscure small masses. There is an asymmetry in the retroareolar region which partially effaces. Right MAMMOGRAM DIAGNOSTIC JEREL BILATERAL The breasts are heterogeneously dense, which may obscure small masses. The previously noted mass in the outer breast is no longer identified. There is a new asymmetry in the inner breast which effaces with compression. US BREAST LIMITED RIGHT The breast tissue has a heterogeneous background echotexture. Targeted ultrasounds of the inner breast and retroareolar region demonstrates a small duct at 3:00, 4 cm from the nipple. The previously noted cyst at 9:00, 10 cm from the nipple is no longer identified. The oval hypoechoic lesion at 10:00, 8 cm from the nipple without internal vascularity measures 1.3 x 0.5 x 1.3 cm, previously measuring 1.2 x 0.4 x 1 cm. Recommend an additional 6 month follow-up ultrasound to ensure stability. Targeted ultrasound was also performed to the right retroareolar region for intermittent brown nipple discharge. The patient also states she has left milky discharge which was noted by the technologist with compression. No abnormality is seen bilaterally. Impression Left MAMMOGRAM DIAGNOSTIC JEREL BILATERAL US [...] breast cancer. Your breast tissue is dense. In some people with dense tissue, other imaging tests in addition to a mammogram may help find cancers. Talk to your healthcare provider about breast density, risks for breast cancer, and your individual situation. This examination was performed at [facility], [facility] [place] [address]. [phone] Doug Hong PA-C RAD MAMMOGRAPHY Final Resul t documented in this encounter Visit Diagnoses Diagnosis Abnormal mammogram Abnormal mammogram, unspecified documented in this encounter [...] and were consensually agreed upon. Care Teams Coating Machine Feeder Relationship Specialty Start Date End Date Doug Hong PA-C [address] [place] [address] PCP - General Physician Correctional Supervising Cook 06/14/23 documented as of this encounter
--- OUTSIDE RECORDS SUMMARY | 2024-09-07 23:47 | External Medical Summary | Summary of Care ---
Author Name Unknown Organization [facility] Address [address] [place] [address] Phone [phone] Care Team Providers Care Glass Setter Name Role Phone Doug Jane PA-C Primary Care Provider [phone]- [phone] Reason for Visit * Reason Onset Date Comments Test Results 06/07/2024 Unexpected or In determinate Result Encounter Details Date Type Department Care Team ([facility] st Contact Info) Description 06/07/2024 Telephone Laboratory, [place] [address] [place] [address] Doug Jane PA-C [address] [place] [id number] Test Results (Unexpected or Indeterminate ... Allergies Active Allergy Reactions Criticality Noted Date Comments Aspirin Nausea/vomiting Low 05/13/2012 Latex Rash Low 05/13/2012 Metformin 03/17/2023 Extreme diarrhea Niacin 03/17/2023 Throat swelling documented as of this encounter (statuses as of 06/11/2024) Medications OneTouch Delica Plus [id number] use daily as directed 100 Each 11 [...] as of this encounter (statuses as of 06/11/2024) Active Problems Problem Noted Date Diagnosed Date Type 2 diabetes mellitus wit h hemoglobin A1c goal of less than 7.0% 12/15/2023 Mood disorder 07/25/2023 Food insecurity 02/23/2021 Overview: Per [facility] Protocol Amenorrhea, secondary 10/16/2020 HTN, goal [...] as of this encounter (statuses as of 06/11/2024) Resolved Problems Problem Noted Date Diagnosed Date [...] as of this encounter (statuses as of 06/11/2024) Immunizations Name Administration Dates Next Due DTaP [...] as of this encounter Miscellaneous Notes * Addendum Note - Doug Jane PA-C [...] Benson OSA - 06/07/2024 1:05 PM EST Louann- The radiologist discovered an unexpected or indeterminate finding on Mary Aguilar ([id number]) and asks that you review the following [...] Thank you, LAURIE Barry Client Service Rep [facility] documented in this encounter Plan of Treatment Upcoming Encounters Date Type Department Care Team (Late st Contact Info) Description 06/13/2024 9:20 AM EST Telemedicine Pharmacy [address] [place] [phone] Pharmacist2, [facility] [address] [place] [address] 06/15/2024 6:10 PM EST Pharmacy Pharmacy, [facility] [address] [address] Pharmacist2, [facility] [address] [place] [address] 03/14/2025 10:15 AM EDT Office Visit Gynecology/Obstetrics [facility] [address] [place] [address] Dayana Mann CNM [address] [place] [address] Scheduled Orders Name Type Priority Associated Diagnoses Orde r Schedule US BREAST LIMITED RIGHT Medical Imaging Routine Abnormal mammogram Expected: 12/09/2024, Expires: 07/11/2025 Health Maintenance Due Date Last Done Comments DISCUSS TOBACCO CESSATION (REFER TO SMARTSET #[id number]) 1975 Diabetic Eye Exam 11/03/1995 Diabetic Foot [...] and were consensually agreed upon. Care Teams Glass Setter Relationship Specialty Start Date End Date Doug Jane PA-C [address] [place], [place] [address] [address] PCP - General Physician Account Liaison 06/14/23 documented as of this encounter
--- OUTSIDE RECORDS SUMMARY | 2024-09-07 23:47 | External Medical Summary | Summary of Care ---
Author Name Unknown Organization [facility] Address [address] [place] [address] Phone [phone] Care Team Providers Care Blocker And Polisher Name Role Phone Doug Jane PA-C Primary Care Provider [phone]- [phone] Reason for Visit * Reason Onset Date Comments Test Results 06/07/2024 Unexpected or In determinate Result Encounter Details Date Type Department Care Team ([facility] st Contact Info) Description 06/07/2024 Telephone Laboratory, [place] [address] [place] [address] Doug Jane PA-C [address] [place] [address] Test Results (Unexpected or Indeterminate ... Allergies Active Allergy Reactions Criticality Noted Date Comments Aspirin Nausea/vomiting Low 05/13/2012 Latex Rash Low 05/13/2012 Metformin 03/17/2023 Extreme diarrhea Niacin 03/17/2023 Throat swelling documented as of this encounter (statuses as of 06/11/2024) Medications OneTouch Delica Plus [id number] use daily as directed 100 Each 11 [...] disorder 07/25/2023 Food insecurity 02/23/2021 Overview: Per [facility] Protocol Amenorrhea, secondary 10/16/2020 HTN, goal [...] encounter Miscellaneous Notes * Telephone Encounter - Alexandria Tolliver OSA [...] unexpected or indeterminate finding on Mary Aguilar ([id number]) and asks that you review the following [...] Thank you, LAURIE Barry Client Service Rep [facility] [place] documented in this encounter Plan of Treatment Upcoming Encounters Date Type Department Care Team ([facility] Contact Info) Description 06/13/2024 9:20 AM EST Telemedicine [address] [place] [phone] Pharmacist2, [facility] [address] [place] [address] 06/15/2024 6:10 PM [facility] Pharmacy Pharmacy, [facility] [address] [facility] [place] [address] Pharmacist2, [facility] [address] [facility] [place] [address] 03/14/2025 10:15 AM EDT Office Visit Gynecology/Obstetrics [facility] [address] [place] [address] Dayana Mann CNM [address] [place], [place] [phone] Scheduled Orders Name Type Priority Associated Diagnoses Orde r Schedule US BREAST LIMITED RIGHT Medical Imaging Routine Abnormal mammogram Expected: 12/09/2024, Expires: 07/11/2025 Health Maintenance Due Date Last Done Comments DISCUSS TOBACCO CESSATION (REFER TO SMARTSET #[id number]) 1975 Diabetic Eye Exam 11/03/1995 Diabetic Foot Exam 11/03/1995 Hepatitis B Vaccine (1 of 3 - 19+ 3-dose series) 1996 11/21/2000 HPV/Co-Test 11/03/2007 TSH 02/06/2022 02/06/2021, 09/15, 04/21/2018, Additional history exists Cologuard 2022 Colonoscopy 2022 Colorectal Cancer Screening 2022 Fecal Occult Blood Test 2022 Sigmoidoscopy 2022 Cervical Cancer Screening 10/17/2023 Pap Smear 10/17/2023 10/16/2020, 05/11/2015, 03/26/2014, Additional history exists COVID-19 Vaccine ( [...] and were consensually agreed upon. Care Teams Blocker And Polisher Relationship Specialty Start Date End Date Doug Jane PA-C [address] [place], [place] [address] [address] PCP - General Physician Transport Aide 06/14/23 documented as of this encounter
--- OUTSIDE RECORDS SUMMARY | 2024-09-07 23:47 | External Medical Summary | Summary of Care ---
Author Name Unknown Organization [facility] Address [address] [facility] [place] [address] Phone [phone] Care Team Providers Care Environmental Research Project Manager Name Role Phone Doug Hong PA-C Primary Care Provider [phone] Reason for Visit * Reason Comments Dosage Adjustment Via Phone (anticoag Cl inic) Encounter Details Date Type Department Care Team (Late st Contact Info) Description 05/25/2024 6:10 PM [facility] Pharmacy Pharmacy, [facility] [address] [facility] [place] [address] Pharmacist2, [facility] [address] [facility] [place] [address] Type 2 diabetes mellitus with hemoglobin A1c goal of less than 7.0% ([facility] Allergies Active Allergy Reactions Criticality Noted Date Comments Aspirin Nausea/vomiting Low 05/13/2012 Latex Rash Low 05/13/2012 Metformin 03/17/2023 Extreme diarrhea Niacin 03/17/2023 Throat swelling documented as of this encounter (statuses as of 05/25/2024) Medications Levothyroxine Sodium 50 MCG Oral Tablet (Levoxyl) Take 1 Tablet by mouth daily first thing in the morning. (at least 30 min prior to breakfast or other meds) 90 Tablet 3 01/16/2024 5:09 PM EDT Active OneTouch Delica Plus [id number] use daily as directed 100 Each 11 [...] 5 11/17/2023 10:06 AM EDT 4 Active Omeprazole 20 MG Oral Capsule Delayed Release (PriLOSEC) Take 1 Capsule by mouth daily. 30 Capsule 5 04/17/2024 4:47 PM EDT 4 Active Lisinopril 40 MG Oral [...] 1 Capsule before bedtime. 90 Capsule 3 04/26/2024 2:27 PM EDT 4 Active hydrOXYzine HCl 25 MG Oral Tablet Take 1 Tablet by mouth 4 times a day as needed for Anxiety. 30 Tablet 5 04/26/2024 2:27 PM EDT 4 Active documented as of this encounter (statuses as of 05/25/2024) Active Problems Problem Noted Date Diagnosed Date Type 2 diabetes mellitus wit h hemoglobin A1c goal of less than 7.0% 12/15/2023 Mood disorder 07/25/2023 Food insecurity 02/23/2021 Overview: Per [facility] Protocol Amenorrhea, secondary 10/16/2020 HTN, goal [...] as of this encounter (statuses as of 05/25/2024) Resolved Problems Problem Noted Date Diagnosed Date Resolved Date Prediabetes 12/30/2020 12/29/2023 Overview: Per Prediabetes protocol History of gestational diabe shiam in prior , currently 04/09/2014 11/29/2015 Headache [...] as of this encounter (statuses as of 05/25/2024) Immunizations Name Administration Dates Next Due Pneumococcal [...] a child, family member or friend? No 10/10/2023 Does your family need help f inding childcare? (Household - for ages 0-17 years) Not on file 10/10/2023 Clothing Answer Date Recorded Have you been unable to get clothing when it was really needed? Yes 10/10/2023 Is your family able to get c lothes or diapers when needed? (Household - for ages 0-17 years) Not on file 10/10/2023 Personal Safety Answer Date Recorded Do you feel unsafe or have concerns for your saf ety? No 10/10/2023 Do you have concerns for you r family's safety? (Household - for ages 0-17 years) Not on file 10/10/2023 Utilities Answer Date Recorded Do you have trouble paying y our heating, water, or electric bill? No 10/10/2023 Is your family able to pay t he heat, water, or electric bill? (Household - for ages 0-17 years) Not on file 10/10/2023 Does your family have access to good internet? (Household - for ages 0-17 years) Not on file 10/10/2023 Employment Status Answer Date Recorded Are you unemployed or without regular income? No 10/10/2023 Does the household have a re gular source of income? (Household - for ages 0-17 years) Not on file 10/10/2023 Social Connections Answer Date Recorded How often do you feel lonely or isolated from those around you? Sometimes 10/10/2023 Financial Resource Strain Answer Date R ecorded Do you have any trouble payi ng for your medications, or do you think you might in the future? No 10/10/2023 Does your family have troubl e paying for medicine? (Household - for ages 0-17 years) Not on file 10/10/2023 Transportation Needs Answer Date Record ed READ ONLY Do you have troubl e getting a ride to medical visits or work? Never True 10/10/2023 Does your family have a hard time getting a ride to doctors visits? (Household - for ages 0-17 years) Not on file 10/10/2023 Has lack of transportation k ept you from medical appointments, meetings, work, or from getting things needed for daily living? Check all that apply. (Adult - for ages 18 years and over) Not on file 10/10/2023 Do you (or your family) have trouble finding or paying for a ride (transportation)? (Household - for ages 0-17 years) Not on file 10/10/2023 Housing Stability Answer Date Recorded Do you currently live in a s helter or have no steady place to sleep at night? Yes 10/10/2023 READ ONLY Do you think you a re at risk of becoming homeless? No 10/10/2023 Does your family worry about paying for your home or becoming homeless? (Household - for ages 0-17 years) Not on file 0 10/10/2023 Are you homeless or worried that you might be in the future? (Adult - for ages 18 years and over) Not on file Are you (or your family) dede eless or worried that you might be in the future? (Household - for ages 0-17 years) Not on file Food Insecurity Answer Date Recorded Do you need food for this week? Yes 10/10/2023 Are you able to get enough f ood for your family? (Household - for ages 0-17 years) Not on file 10/10/2023 Does your family need food t his week? (Household - for ages 0-17 years) Not on file 10/10/2023 Do you always have enough fo od for your family? (Household - for ages 0-17 years) Not on file 10/10/2023 Comments No Sex and Gender Information Value [...] as of this encounter Progress Notes * Cassidy Hudson rock wool insulator - 05/25/2024 8:45 AM EST Patient Phone Numbers Left message on patients answering machine to schedule MT[facility] appointment for pain management. [facility] message sent --no Clinic will follow up again in 3 week(s). [Attempt # 3] Cassidy Hudson City Assessor [facility] [address] [place] [address] [address] [place] [phone] 05/25/2024,8:45 AM documented in this encounter Plan of Treatment Upcoming Encounters Date Type Department Care Team (Late st Contact Info) Description 06/07/2024 10:00 AM EST Hospital Encounter Radiology, [address] [address] 06/07/2024 10:30 AM EST Appointment Radiology, [place] [address] [place] [address] 06/15/2024 6:10 PM EST Pharmacy Pharmacy, [facility] [place] [address] [facility] [place], [place] [address] Pharmacist2, [facility] [address] [facility] [place] [address] 03/14/2025 10:15 AM EDT Office Visit Gynecology/Obstetric s [facility] [address] [place] [address] Dayana Mann CN [address] [place], [place] [phone] Health Maintenance Due Date Last Done Comments DISCUSS TOBACCO CESSATION (REFER TO SMARTSET #[id number]) 1975 Diabetic Eye Exam 11/03/1995 Diabetic Foot [...] Vaccine (FLU shot) (#1) 2024 04/23/2023, 05/02/2018 Mammogram 04/27/2024 04/27/2023 Depression Screening 12/14/2024 12/15/2023 GFR 12/30/2024 12/31/2023, 02/17, 10/01/2020, Additional history exists Lipid Panel 03/17/2028 03/17/2023, 10/01/2020 DTap/Tdap Vaccines [...] as of this encounter Visit Diagnoses Diagnosis Type 2 diabetes mellitus with hemoglobin A1c goal of less than 7.0% ([facility])- Primary documented in this encounter Advance Directives [...] and were consensually agreed upon. Care Teams Environmental Research Project Manager Relationship Specialty Start Date End Date Doug Hong PA-C [address] [place], [place] [address] [address] PCP - General Physician Security Representative 06/14/23 documented as of this encounter
--- OUTSIDE RECORDS SUMMARY | 2024-09-07 23:47 | External Medical Summary | Summary of Care ---
Author Name Unknown Organization [facility] Address [address] [place] [address] Phone [phone] Care Team Providers Care Sheriff Sergeant Name Role Phone Doug Hong PA-C Primary Care Provider [phone]- [phone] Reason for Visit * Reason Onset Date Comments Test Results 06/07/2024 Unexpected or In determinate Result Encounter Details Date Type Department Care Team ([facility] st Contact Info) Description 06/07/2024 Telephone Laboratory, [place] [address] [place] [address] Doug Hong PA-C [address] [place] [address] Test Results (Unexpected or Indeterminate ... Allergies Active Allergy Reactions Criticality Noted Date Comments Aspirin Nausea/vomiting Low 05/13/2012 Latex Rash Low 05/13/2012 Metformin 03/17/2023 Extreme diarrhea Niacin 03/17/2023 Throat swelling documented as of this encounter (statuses as of 06/07/2024) Medications OneTouch Delica Plus [id number] use daily as directed 100 Each 11 [...] disorder 07/25/2023 Food insecurity 02/23/2021 Overview: Per [facility] Protocol Amenorrhea, secondary 10/16/2020 HTN, goal [...] unexpected or indeterminate finding on Mary Thomasinger ([id number]) and asks that you review the following [...] Thank you, LAURIE Barry Client Service Rep [facility] [place] documented in this encounter Plan of Treatment Upcoming Encounters Date Type Department Care Team ([facility] st Contact Info) Description 06/12/2024 8:20 AM EST Office Visit [address] [address] Doug Hong PA-C [address] [place] [address] 06/15/2024 6:10 PM EST Pharmacy Pharmacy, [facility] [address] [place] [address] Pharmacist2, [facility] [address] [place] [address] 03/14/2025 10:15 AM EDT Office Visit Gynecology/Obstetrics [facility] [address] [place] [address] Dayana Mann CNM [address] [place] [address] Health Maintenance Due Date Last Done Comments DISCUSS TOBACCO CESSATION (REFER TO SMARTSET #[id number]) 1975 Diabetic Eye Exam 11/03/1995 Diabetic Foot [...] and were consensually agreed upon. Care Teams Sheriff Sergeant Relationship Specialty Start Date End Date Doug Hong PA-C [address] [place] [id number] PCP - General Physician Pneumatic Deicer Inspector 06/14/23 documented as of this encounter
--- OUTSIDE RECORDS SUMMARY | 2024-09-07 23:47 | External Medical Summary | Summary of Care ---
Author Name Unknown Organization [facility] Address [address] [place] [address] Phone [phone] Care Team Providers Care Branding Machine Operator Name Role Phone Doug Hong PA-C Primary Care Provider [phone] Encounter Details Date Type Department Care Team (Latest Contact Info) Description 06/07/2024 9:55 AM EST - 06/07/2024 11:59 PM EST Hospital Encounter Radiology, [facility] [address] [place] [address] Arrived Discharge Disposition: Home - Self Care Allergies Active Allergy Reactions Criticality Noted Date Comments Aspirin Nausea/vomiting Low 05/13/2012 Latex Rash Low 05/13/2012 Metformin 03/17/2023 Extreme diarrhea Niacin 03/17/2023 Throat swelling documented as of this encounter (statuses as of 06/08/2024) Medications OneTouch Delica Plus [id number] use daily as directed 100 Each 11 [...] Active Dulaglutide 0.75 MG/0.5ML Subcutaneous Solution Auto-injector ([employer]) Inject 0.75mg under the skin once a week. 2 mL 3 06/05/2024 10:24 AM EST 4 Active documented as of this encounter (statuses as of 06/08/2024) Active Problems Problem Noted Date Diagnosed Date Type 2 diabetes mellitus wit h hemoglobin A1c goal of less than 7.0% 12/15/2023 Mood disorder 07/25/2023 Food insecurity 02/23/2021 Overview: Per [facility] Protocol Amenorrhea, secondary 10/16/2020 HTN, goal [...] Upcoming Encounters Date Type Department Care Team ([facility] st Contact Info) Description 06/12/2024 8:20 AM EST Office Visit Family [facility] [address] [place] [address] Doug Hong PA-C [address] [place] [address] 06/15/2024 6:10 PM EST Pharmacy Pharmacy, [facility] [address] [place] [address] Pharmacist2, [facility] [address] [place] [address] 03/14/2025 10:15 AM EDT Office Visit Gynecology/Obstetrics [facility] [address] [place] [address] Dayana Mann CNM [address] [place] [address] Health Maintenance Due Date Last Done Comments DISCUSS TOBACCO CESSATION (REFER TO SMARTSET #2871) 1975 Diabetic Eye Exam 11/03/1995 Diabetic Foot Exam 11/03/1995 Hepatitis B Vaccine (1 of 3 - 19+ 3-dose series) 1996 11/21/2000 HPV/Co-Test 11/03/2007 TSH 02/06/2022 02/06/2021, 09/15, 04/21/2018, Additional history exists Cologuard 2022 Colonoscopy 2022 Colorectal Cancer Screening 2022 Fecal Occult Blood Test 2022 Sigmoidoscopy 2022 Cervical Cancer Screening 10/17/2023 Pap Smear 10/17/2023 10/16/2020, 11/2015, 03/26/2014, Additional history exists COVID-19 Vaccine [...] Procedure Name Priority Date/Time Associated Diagnosis Comments US BREAST LIMITED RIGHT Routine 06/07/2024 10:55 AM EST Abnormal mammogram documented in this encounter Results * US BREAST LIMITED RIGHT (06/07/2024 10:55 AM EST) Anatomical Region Laterality Modality Breast Right Ultrasound Narrative 06/07/2024 12:26 PM EST Result MAMMOGRAM [...] individual situation. This examination was performed at [facility], [facility] [place] [address]. [phone] Doug Hong PA-C RAD ULTRASOUND Final Resul t documented in this encounter [...] and were consensually agreed upon. Care Teams Branding Machine Operator Relationship Specialty Start Date End Date Doug Hong PA-C [address] [place] [address] PCP - General Physician Channel Development Manager 06/14/23 documented as of this encounter
--- OUTSIDE RECORDS SUMMARY | 2024-09-07 23:47 | External Medical Summary | Summary of Care ---
Author Name Unknown Organization [facility] Address [address] [place] [facility] [place] [address] Phone [phone] Care Team Providers Care Political Consultant Name Role Phone Doug Jane PA-C Primary Care Provider [phone] Reason for Visit * Reason Comments Medication Refill Encounter Details Date Type Department Care Team (Late st Contact Info) Description 05/28/2024 Refill Family Practice/Pediatrics[address] [place] [address] Giacomo Diana MD [address] [place] [address] Encounter for long-term (current) use of medications* Allergies Active Allergy Reactions Criticality Noted Date Comments Aspirin Nausea/vomiting Low 05/13/2012 Latex Rash Low 05/13/2012 Metformin 03/17/2023 Extreme diarrhea Niacin 03/17/2023 Throat swelling documented as of this encounter (statuses as of 06/01/2024) Medications OneTouch Delica Plus [id number] use daily as directed 100 Each 11 [...] 04/26/2024 2:27 PM EDT 07/25/19 24 Active FreeStyle Belia 3 Sensor Use as directed. Use to monitor blood sugars daily DX E11.9 6 Each 3 03/13/2024 11:43 AM EDT 07/29/19 24 Active acetaZOLAMIDE 250 MG Oral Tablet [...] to breakfast or other meds) 90 Tablet 06/01/20 24 Active Levothyroxine Sodium 50 MCG Oral Tablet (Levoxyl) Take 1 Tablet by mouth daily first thing in the morning. (at least 30 min prior to breakfast or other meds) 90 Tablet 3 01/16/2024 5:09 PM EDT 04/08/20 23 024 Discontin ued(Refil l) Omeprazole 20 MG Oral Capsule Delayed Release (PriLOSEC) Take 1 Capsule by mouth daily. 30 Capsule 5 04/17/2024 4:47 PM EDT 11/14/19 24 024 Discontin ued(Refil l) documented as of this encounter (statuses as of 06/01/2024) Active Problems Problem Noted Date Diagnosed Date [...] as of this encounter (statuses as of 06/01/2024) Resolved Problems Problem Noted Date Diagnosed Date [...] as of this encounter (statuses as of 06/01/2024) Immunizations Name Administration Dates Next Due Pneumococcal [...] Telephone Encounter - Doug Jane PA-C - 06/01/2024 2:52 PM ESTSigned Prescriptions: Disp Refills Levothyroxine Sodium 50 MCG Oral Tablet (L*90 Tab*0 Sig: Take 1 Tablet by mouth daily first thing in the morning. (at least 30 min prior to breakfast or other meds) Authorizing Provider: DOUG JANE * Telephone Encounter - Christel Bauer analysis director - 05/30/2024 12:28 PM EST Pending Prescriptions: Disp Refills Levothyroxine Sodium 50 MCG Oral Tablet (L*90 Tab*0 Sig: Take 1 Tablet by mouth daily first thing in the morning. (at least 30 min prior to breakfast or other meds) * Telephone Encounter - Christel Bauer analysis director - 05/30/2024 12:27 PM EST Received message from [facility] regarding patient needing labs. Call Placed, Left message on voicemail advising of required labs Thank you for your assistance Christel Bauer Tar Leveler II [facility] 05/30/2024,12:27 PM * Telephone Encounter - Miriam Mccauley [facility] - 05/30/2024 12:17 PM ESTPending Prescriptions: Disp Refills Levothyroxine Sodium 50 MCG Oral Tablet (L*90 Tab*0 Sig: Take 1 Tablet by mouth daily first thing in the morning. (at least 30 min prior to breakfast or other meds) * Telephone Encounter - Miriam Mccauley [facility] - 05/30/2024 12:16 PM EST Last 2020. Unable to authorize medication refills for pended medication(s) at this time. Per refill protocol patient should have TSH and lipid panel on file within past year. Reviewed AMP report, Care Gaps/Health Maintenance, medications list, and for any routine labs typically ordered for this patient. Lab orders placed. Please contact patient to advise of labs ordered for blood draw. Recommend patient to fast if able for labs. Patient may still have water and regular medications. Advise to obtain labs before requesting the next refill. After contacting patient, please forward request to Doug Jane PA-C. Miriam Hawley Clinical Pharmacist [facility] [phone] 05/30/2024, 12:17 PM documented in this encounter Plan of Treatment Upcoming Encounters Date Type Department Care Team (Late st Contact Info) Description 06/07/2024 10:00 AM EST Hospital Encounter Radiology, [facility] [address] [place] [address] 06/07/2024 10:30 AM EST Appointment Radiology, [facility] [address] [place] [address] 06/15/2024 6:10 PM EST Pharmacy Pharmacy, [facility] [address] [facility] [place] [address] Pharmacist2, [facility] [address] [facility] [place] [address] 03/14/2025 10:15 AM EDT Office Visit Gynecology/Obstetric s [facility] [address] [place] [address] Dayana Mann CNM [address] [place], [place] [phone] Scheduled Orders Name Type Priority Associated Diagnoses Orde r Schedule TSH WITH FREE T4 IF INDICATED Lab Routine Encounter for long-term (current) use of medications Expected: 06/06/2024 (Approximate), Expires: 05/30/2025 LIPID PANEL WITH DIRECT LDL IF TG IS HIGH Lab Routine Encounter for long-term (current) use of medications Expected: 06/06/2024 (Approximate), Expires: 05/30/2025 Health Maintenance Due Date Last Done Comments DISCUSS TOBACCO CESSATION (REFER TO SMARTSET #9305) 1975 Diabetic Eye Exam 11/03/1995 Diabetic Foot [...] as of this encounter Visit Diagnoses Diagnosis Encounter for long-term (current) use of medications- Primary Encounter for long-term (current) use of other medications documented in this encounter Advance Directives * [...] and were consensually agreed upon. Care Teams Political Consultant Relationship Specialty Start Date End Date Doug Jane PA-C [address] [place], [place] [address] [address] PCP - General Physician Food Safety Specialist 06/14/23 documented as of this encounter
--- OUTSIDE RECORDS SUMMARY | 2024-09-07 23:47 | External Medical Summary | Summary of Care ---
Author Name Unknown Organization [facility] Address [address] [place] [address] Phone [phone] Care Team Providers Care Paramedic Instructor Name Role Phone Doug Hong PA-C Primary Care Provider [phone] Reason for Visit * Reason Onset Date Comments Test Results 06/07/2024 Unexpected or In determinate Result Encounter Details Date Type Department Care Team ([facility] st Contact Info) Description 06/07/2024 Telephone Laboratory, [place] [address] [place] [address] Doug Hong PA-C [address] [place] [address] Test Results (Unexpected or Indeterminate ... Allergies Active Allergy Reactions Criticality Noted Date Comments Aspirin Nausea/vomiting Low 05/13/2012 Latex Rash Low 05/13/2012 Metformin 03/17/2023 Extreme diarrhea Niacin 03/17/2023 Throat swelling documented as of this encounter (statuses as of 06/09/2024) Medications OneTouch Delica Plus [id number] use daily as directed 100 Each 11 [...] as of this encounter (statuses as of 06/09/2024) Active Problems Problem Noted Date Diagnosed Date Type 2 diabetes mellitus wit h hemoglobin A1c goal of less than 7.0% 12/15/2023 Mood disorder 07/25/2023 Food insecurity 02/23/2021 Overview: Per [facility] Protocol Amenorrhea, secondary 10/16/2020 HTN, goal [...] as of this encounter (statuses as of 06/09/2024) Resolved Problems Problem Noted Date Diagnosed Date [...] as of this encounter (statuses as of 06/09/2024) Immunizations Name Administration Dates Next Due Pneumococcal [...] unexpected or indeterminate finding on Mary Thomasinger ([id number]) and asks that you review the following [...] Thank you, LAURIE Barry Client Service Rep [facility] [place] documented in this encounter Plan of Treatment Upcoming Encounters Date Type Department Care Team ([facility] st Contact Info) Description 06/12/2024 8:20 AM EST Office Visit [address] [address] Doug Hong PA-C [address] [place] [address] 06/15/2024 6:10 PM EST Pharmacy Pharmacy, [facility] [address] [facility] [place] [address] Pharmacist2, [facility] [address] [facility] [place] [address] 03/14/2025 10:15 AM EDT Office Visit Gynecology/Obstetrics [facility] [address] [place] [address] Dayana Mann CNM [address] [place] [address] Health Maintenance Due Date Last Done Comments DISCUSS TOBACCO CESSATION (REFER TO SMARTSET #8952) 1975 Diabetic Eye Exam 11/03/1995 Diabetic Foot [...] and were consensually agreed upon. Care Teams Paramedic Instructor Relationship Specialty Start Date End Date Doug Hong PA-C [address] [place] [phone] PCP - General Physician Facsimile Operator 06/14/23 documented as of this encounter
--- OUTSIDE RECORDS SUMMARY | 2024-09-07 23:47 | External Medical Summary | Summary of Care ---
Author Name Unknown Organization [facility] Address [address] [facility] [place] [address] Phone [phone] Care Team Providers Care Bottling Equipment Sales Representative Name Role Phone Doug Jane PA-C Primary Care Provider [phone] Reason for Visit * Reason Comments Medication Refill Encounter Details Date Type Department Care Team (Late st Contact Info) Description 05/28/2024 Refill Family Practice/Pediatrics[address] [place] [address] Doug Jane PA-C [address] [place] [phone] Encounter for long-term (current) use of medications* Allergies Active Allergy Reactions Criticality Noted Date Comments Aspirin Nausea/vomiting Low 05/13/2012 Latex Rash Low 05/13/2012 Metformin 03/17/2023 Extreme diarrhea Niacin 03/17/2023 Throat swelling documented as of this encounter (statuses as of 05/30/2024) Medications Levothyroxine Sodium 50 MCG Oral Tablet (Levoxyl) Take 1 Tablet by mouth daily first thing in the morning. (at least 30 min prior to breakfast or other meds) 90 Tablet 3 01/16/2024 5:09 PM EDT 04/08/20 23 Active OneTouch Delica Plus [id number] use daily as directed 100 Each 11 [...] 05/29/2024 1:11 PM EST 04/25/20 24 Active Omeprazole 20 MG Oral Capsule Delayed Release (PriLOSEC) Take 1 Capsule by mouth daily. 30 Capsule 5 05/30/20 24 Active Omeprazole 20 MG Oral Capsule Delayed Release (PriLOSEC) Take 1 Capsule by mouth daily. 30 Capsule 5 04/17/2024 4:47 PM EDT 11/14/19 24 024 Discontin ued(Refil l) documented as of this encounter (statuses as of 05/30/2024) Active Problems Problem Noted Date Diagnosed Date Type 2 diabetes mellitus wit h hemoglobin A1c goal of less than 7.0% 12/15/2023 Mood disorder 07/25/2023 Food insecurity 02/23/2021 Overview: Per [facility] Protocol Amenorrhea, secondary 10/16/2020 HTN, goal [...] as of this encounter (statuses as of 05/30/2024) Resolved Problems Problem Noted Date Diagnosed Date [...] as of this encounter (statuses as of 05/30/2024) Immunizations Name Administration Dates Next Due Pneumococcal [...] encounter Miscellaneous Notes * Telephone Encounter - Miriam Mccauley RPh - 05/30/2024 12:18 PM ESTSigned Prescriptions: Disp Refills Omeprazole 20 MG Oral Capsule Delayed Rele*30 Cap*5 Sig: Take 1 Capsule by mouth daily.Authorizing Provider: DOUG JANE User: MIRIAM MCCAULEY--------- documented in this encounter Plan of Treatment Upcoming Encounters Date Type Department Care Team (Late st Contact Info) Description 06/07/2024 10:00 AM EST Hospital Encounter Radiology, [place] [address] [place] [address] 06/07/2024 10:30 AM EST Appointment Radiology, [facility] [address] [facility] [address] 06/15/2024 6:10 PM EST Pharmacy Pharmacy, [facility] [address] [facility] [place] [address] Pharmacist2, [facility] [address] [facility] [place] [address] 03/14/2025 10:15 AM EDT Office Visit Gynecology/Obstetric s [facility] [address] [place] [address] Dayana Mann CNM [address] [place] [address] Scheduled Orders Name Type Priority Associated Diagnoses Orde r Schedule MAGNESIUM Lab Routine Encounter for long-term (current) use of medications Expected: 06/06/2024 (Approximate), Expires: 05/30/2025 VITAMIN B12 Lab Routine Encounter for long-term (current) use of medications Expected: 06/06/2024 (Approximate), Expires: 05/30/2025 Health Maintenance Due Date Last Done Comments DISCUSS TOBACCO CESSATION (REFER TO SMARTSET #4843) 1975 Diabetic Eye Exam 11/03/1995 Diabetic Foot Exam 11/03/1995 Hepatitis B Vaccine (1 of 3 - 19+ 3-dose series) 1996 11/21/2000 HPV/Co-Test 11/03/2007 TSH 02/06/2022 02/06/2021, 0301/2021, 04/21/2018, Additional history exists Cologuard 2022 Colonoscopy 2022 Colorectal Cancer Screening 2022 Fecal Occult Blood Test 2022 Sigmoidoscopy 2022 Cervical Cancer Screening 10/17/2023 Pap Smear 10/17/2023 10/16/2020, 05/0 11/2015, 03/26/2014, Additional history exists COVID-19 Vaccine ( season) 2024 Influenza Vaccine (FLU shot) (#1) 2024 04/23/2023, 05/02/2018 Mammogram 04/27/2024 04/27/2023 Depression Screening 12/14/2024 12/15/2023 GFR 12/30/2024 12/31/2023, 08/3 07/2022, 10/01/2020, Additional history exists Lipid Panel 03/17/2028 [...] and were consensually agreed upon. Care Teams Bottling Equipment Sales Representative Relationship Specialty Start Date End Date Doug Jane PA-C [address] [place], [place] [address] [phone] PCP - General Physician Consulting Engineer 06/14/23 documented as of this encounter
--- OUTSIDE RECORDS SUMMARY | 2024-09-07 23:47 | External Medical Summary | Summary of Care ---
Author Name Unknown Organization [facility] Address [address] [facility] [place] [address] Phone [phone] Care Team Providers Care Insurance Actuary Name Role Phone Doug Hong PA-C Primary Care Provider [phone] Encounter Details Date Type Department Care Team (Late st Contact Info) Description 06/04/2024 Orders Only PATIENT PORTAL DO NOT DELETE THIS DEPT USED BY [place] [id number] Allergies Active Allergy Reactions Criticality Noted Date Comments Aspirin Nausea/vomiting Low 05/13/2012 Latex Rash Low 05/13/2012 Metformin 03/17/2023 Extreme diarrhea Niacin 03/17/2023 Throat swelling documented as of this encounter (statuses as of 06/04/2024) Medications OneTouch Delica Plus [id number] use daily as directed 100 Each 11 [...] to breakfast or other meds) 90 Tablet 4 Active Omeprazole 20 MG Oral Capsule Delayed Release (PriLOSEC) Take 1 Capsule by mouth daily. 30 Capsule 5 4 Active Dulaglutide 0.75 MG/0.5ML Subcutaneous Solution Auto-injector ([employer]) Inject 0.75mg under the skin once a week. 2 mL 3 4 Active documented as of this encounter (statuses as of 06/04/2024) Active Problems Problem Noted Date Diagnosed Date Type 2 diabetes mellitus wit h hemoglobin A1c goal of less than 7.0% 12/15/2023 Mood disorder 07/25/2023 Food insecurity 02/23/2021 Overview: Per [facility] Protocol Amenorrhea, secondary 10/16/2020 HTN, goal [...] as of this encounter (statuses as of 06/04/2024) Resolved Problems Problem Noted Date Diagnosed Date [...] as of this encounter (statuses as of 06/04/2024) Immunizations Name Administration Dates Next Due Pneumococcal [...] 06/07/2024 10:00 AM EST Hospital Encounter Radiology, [facility] [address] [place] [address] 06/07/2024 10:30 AM EST Appointment Radiology, [facility] [address] [place] [address] 06/15/2024 6:10 PM EST Pharmacy Pharmacy, [facility] [address] [place] [address] Pharmacist2, [facility] [address] [place] [address] 03/14/2025 10:15 AM EDT Office Visit Gynecology/Obstetric s [facility] [address] [place] [address] Dayana Mann CNM [address] [place], [place] [phone] Health Maintenance Due Date Last Done Comments DISCUSS TOBACCO CESSATION (REFER TO SMARTSET #1789) 1975 Diabetic Eye Exam 11/03/1995 Diabetic Foot [...] and were consensually agreed upon. Care Teams Insurance Actuary Relationship Specialty Start Date End Date Doug Hong PA-C [address] [place] [address] [place] [id number] PCP - General Physician Flower Grower 06/14/23 documented as of this encounter
--- OUTSIDE RECORDS SUMMARY | 2024-09-07 23:48 | External Medical Summary | Summary of Care ---
Author Name Unknown Organization [facility] Address [address] [place] [address] Phone [phone] Care Team Providers Care Prescription Clerk Name Role Phone Doug Hong PA-C Primary Care Provider Reason for Visit * Reason Onset Date Comments Order Request 05/22/2024 Encounter Details Date Type Department Care Team ([facility] st Contact Info) Description 05/22/2024 Telephone Radiology, [facility] [address] [place] [address] Doug Hong PA-C [address] [place], [place] [phone] Order Request Allergies Active Allergy Reactions Criticality Noted Date Comments Aspirin Nausea/vomiting Low 05/13/2012 Latex Rash Low 05/13/2012 Metformin 03/17/2023 Extreme diarrhea Niacin 03/17/2023 Throat swelling documented as of this encounter (statuses as of 05/24/2024) Medications Medication Sig Dispensed Refills Start Date End Date Status Levothyroxine Sodium 50 MCG Oral Tablet (Levoxyl) Take 1 Tablet by mouth daily first thing in the morning. (at least 30 min prior to breakfast or other meds) 90 Tablet 3 04/08/2023 Active OneTouch Delica Plus [id number] use daily as directed 100 Each 11 04/08/2023 Active OneTouch Verio w/Device Kit Use up to 4 times a day E11.9 1 Kit 04/08/2023 Active OneTouch Verio In Vitro Strip (Glucose Blood) Use up to 4 times a day E11.9 100 Strip 11 04/08/2023 Active FLUoxetine HCl 40 MG Oral Capsule (PROzac)Indications :Mood disorder (HCC) Take 1 Capsule by mouth in the morning. 90 Capsule 3 07/25/2023 Active FreeStyle Belia 3 Sensor Use as directed. Use to monitor blood sugars daily DX E11.9 6 Each 3 07/29/2023 Active acetaZOLAMIDE 250 MG Oral Tablet (Diamox) Take 1 Tablet by mouth in the morning and 1 Tablet before bedtime. 60 Tablet 2 09/12/2023 Active Furosemide 20 MG Oral Tablet (Lasix)Indications: Leg edema Take 1 Tablet by mouth daily as needed for Other (leg swelling). 30 Tablet 5 10/13/2023 Active Omeprazole 20 MG Oral Capsule Delayed Release (PriLOSEC) Take 1 Capsule by mouth daily. 30 Capsule 5 11/14/2023 Active Lisinopril 40 MG Oral TabletIndications:H TN, goal below 140/90 Take 1 Tablet by mouth in the morning. 90 Tablet 3 12/15/2023 Active traZODone HCl 100 MG Oral Tablet (Desyrel)Indication s:Insomnia, unspecified type Take 2 Tablets by mouth at bedtime. 120 Tablet 5 12/15/2023 Active Potassium Chloride 20 MEQ/15ML (10%) Oral SolutionIndications :HTN, goal below 140/90 Take 15 mL by mouth in the morning. 473 mL 1 12/15/2023 Active oxyCODONE HCl 5 MG Oral Tablet (Oxy IR) Take 1 Tablet by mouth every 4 hours as needed for Pain, Moderate. 4 Tablet 12/31/2023 Active Additional Information Patient not taking.Informant: At Discharge, Reported on 01/02/2024 Triamcinolone Acetonide 0.1 % External Cream (Aristocort) Apply to rash on legs twice daily for 2 weeks and then weekends as needed 80 g 1 01/06/2024 Active Trulicity 0.75 MG/0.5ML Subcutaneous Solution Pen-injector (Dulaglutide) Inject 0.75 mg under the skin once a week. 6 mL 3 01/09/2024 Active Pregabalin 150 MG Oral Capsule (Lyrica)Indications :Chronic pain syndrome Take 1 Capsule by mouth in the morning and 1 Capsule at noon and 1 Capsule before bedtime. 90 Capsule 3 02/15/2024 Active hydrOXYzine HCl 25 MG Oral Tablet Take 1 Tablet by mouth 4 times a day as needed for Anxiety. 30 Tablet 5 04/25/2024 Active documented as of this encounter (statuses as of 05/24/2024) Active Problems Problem Noted Date Diagnosed Date Type 2 diabetes mellitus wit h hemoglobin A1c goal of less than 7.0% 12/15/2023 Mood disorder 07/25/2023 Food insecurity 02/23/2021 Overview: Per [facility] Protocol Amenorrhea, secondary 10/16/2020 HTN, goal below 140/90 10/01/2020 Endometriosis of ovary 10/01/2020 Advanced directives, counseling/discussion 04/22 Overview: Does the patient have an advance directive? [...] cerclage 10/15/2010 HX/O GDMA1 X 3 09/16/2010 Overview: Hx/o GDMA1 with last 3 pregnancies. An early 1 hour GCT has been recommended and ordered. Tobacco use disorder 09/16/2010 Overview: Smokes 6-8 cig/day. Pt has been encouraged to quit smoking for her and her baby's health. Adjustment disorder with depressed mood 08/24/19 11 Overview: As of 09/15/10 pt denies homicidal or suicidal ideation. Pt is stable on Celexa 20 mg daily. Family Hx Cleft Lip/Palate and NTD 08/24/2010 Overview: As of 09/15/10 at 17 3/7 weeks, several U/S's have not clearly identified the lip. No abnormal anatomy noted. F/U U/S is indicated to verify normal anatomy through completion of a targeted anatomy U/S. Migraine without aura 08/11/2004 Overview: Pt on has had some relief on Fioricet and requests a refill. Order being sent. documented as of this encounter (statuses as of 05/24/2024) Resolved Problems Problem Noted Date Diagnosed Date [...] 09/13/2012 11/29/2015 ADVANCE DIRECTIVE INFORMATION 10/15/2010 10/15/2010 Overview: No, Advance Directive brochure given to patient at prior appt. ADVANCE DIRECTIVE INFORMATION 08/24/2010 08/24/2010 Overview: No, Advance Directive brochure given Supervision of other high-risk 08/24/2010 12/17/2015 Overview: ICD-10 update of inactive term Antepartum hemorrhage from placenta previa 08/24/2010 10/25/2010 Overview: As of 09/15/10, this assessment, which was [...] unspecified as to episode of care 12/25/20082010 Overview: Hx pp depression THREAT [employer]OR NEC-ANTEPAR 11/30/200501/2011 Overview: Hx of delivery at 30 and 35 weeks Insomnia 08/11/2004 08/24/2010 Overview: ICD-10 update of inactive term documented as of this encounter (statuses as of 05/24/2024) Immunizations Name Administration Dates Next Due Pneumococcal [...] ages 0-17 years) Not on file 10/10/2023 Sex and Gender Information Value Date Recorded Sex Assigned at Female 03/17/2023 2:10 PM EDT Gender Identity Female 03/17/2023 2:10 PM EDT Sexual Orientation Straight 03/17/2023 2: 10 PM EDT Job Start Date Occupation Industry Not on file Not on file Not on file documented as of this encounter Miscellaneous Notes * Telephone Encounter - Doug Hong PA-C - 05/23/2024 3:58 PM EST Abnormal mammogram (Primary) - MAMMOGRAM DIAGNOSTIC JEREL BILATERAL; Future; Expected date: 05/30/2024 - US BREAST LIMITED RIGHT; Future; Expected date: 05/30/2024 Ramon * Telephone Encounter - Liza Hatch RT (R)(M) - 05/22/2024 12:[address] orders for bilat diagnostic jerel mammo & Rt limited breast US. Pt already scheduled. Thanks documented in this encounter Plan of Treatment Upcoming Encounters Date Type Department Care Team (Late st Contact Info) Description 05/25/2024 6:10 PM EST Pharmacy Pharmacy, [facility] [address] [place] [address] Pharmacist2, [facility] [address] [place] [address] 06/07/2024 10:00 AM EST Hospital Encounter Radiology, [facility] [address] [place] [address] 06/07/2024 10:30 AM EST Appointment Radiology, [facility] [address] [place] [address] 03/14/2025 10:15 AM EDT Office Visit Gynecology/Obstetric s [facility] [address], [place] [phone] Dayana Mann CN [address] [place], [place] [phone] Scheduled Orders Name Type Priority Associated Diagnoses Orde r Schedule MAMMOGRAM DIAGNOSTIC JEREL BILATERAL Medical Imaging Routine Abnormal mammogram Expected: 05/30/2024, Expires: 06/22/2025 US BREAST LIMITED RIGHT Medical Imaging Routine Abnormal mammogram Expected: 05/30/2024, Expires: 06/22/2025 Health Maintenance Due Date Last Done Comments DISCUSS TOBACCO CESSATION (REFER TO SMARTSET #8740) 1975 Diabetic Eye Exam 11/03/1995 Diabetic Foot [...] and were consensually agreed upon. Care Teams Prescription Clerk Relationship Specialty Start Date End Date Doug Hong PA-C [address] [place] [id number] PCP - General Physician Process Excellence Manager 06/14/23 documented as of this encounter
--- OUTSIDE RECORDS SUMMARY | 2024-09-07 23:48 | External Medical Summary | Summary of Care ---
Author Name Unknown Organization [facility] Address [address] [place] [address] Phone [phone] Care Team Providers Care Quality Engineer Medical Device Name Role Phone Doug Hong PA-C Primary Care Provider [phone] Reason for Visit * Reason Comments Appointment Encounter Details Date Type Department Care Team (Late st Contact Info) Description 05/11/2024 6:10 PM EDT Pharmacy Pharmacy, [facility] [address] [place] [address] Pharmacist2, [facility] [address] [place] [address] Chronic pain syndrome* Allergies Active Allergy Reactions Criticality Noted Date Comments Aspirin Nausea/vomiting Low 05/13/2012 Latex Rash Low 05/13/2012 Metformin 03/17/2023 Extreme diarrhea Niacin 03/17/2023 Throat swelling documented as of this encounter (statuses as of 05/11/2024) Medications Medication Sig Dispensed Refills Start Date End Date Status Levothyroxine Sodium 50 MCG Oral Tablet (Levoxyl) Take 1 Tablet by mouth daily first thing in the morning. (at least 30 min prior to breakfast or other meds) 90 Tablet 3 04/08/2023 Active OneTouch Delica Plus [id number] use daily as directed 100 Each 11 [...] as of this encounter (statuses as of 05/11/2024) Active Problems Problem Noted Date Diagnosed Date [...] as of this encounter (statuses as of 05/11/2024) Resolved Problems Problem Noted Date Diagnosed Date [...] as of this encounter (statuses as of 05/11/2024) Immunizations Name Administration Dates Next Due Pneumococcal [...] as of this encounter Progress Notes * Joi Campbell, senior bi developer - 05/11/2024 8:37 AM EDT Patient Phone Numbers Left message on patients answering machine to schedule [facility] appointment for Pain management. [employer] message sent -- Clinic will follow up again in 2 week(s). [Attempt # 2] Thank you, Joi Campbell Medical Scribe [facility] 05/11/2024,8:38 AM documented in this encounter Plan of Treatment Upcoming Encounters Date Type Department Care Team (Late st Contact Info) Description 05/25/2024 6:10 PM EST Pharmacy Pharmacy, [facility] [address] [facility] [place] [address] Pharmacist2, [facility] [address] [facility] [place], [place] [address] 03/14/2025 10:15 AM EDT Office Visit Gynecology/Obstetrics [facility] [address] [place], [place] [phone] Dayana Mann [facility] [address] [place], [place] [phone] Health Maintenance Due Date Last Done Comments DISCUSS TOBACCO CESSATION (REFER TO SMARTSET #1546) 1975 Diabetic Eye Exam 11/03/1995 Diabetic Foot [...] 12/30/2024 12/31/2023, 0807/2022, 10/01/2020, Additional history exists Lipid Panel 03/17/2028 [...] and were consensually agreed upon. Care Teams Quality Engineer Medical Device Relationship Specialty Start Date End Date Doug Hong PA-C [address] [place], [place] [address] [phone] PCP - General Physician Chief Digital Media Officer 06/14/23 documented as of this encounter
--- OUTSIDE RECORDS SUMMARY | 2024-09-07 23:48 | External Medical Summary | Summary of Care ---
Author Name Unknown Organization [facility] Address [address] [place] [address] Phone [phone] Care Team Providers Care Natural Resource Specialist Name Role Phone Doug Jane PA-C Primary Care Provider [phone] Reason for Visit * Reason Comments Medication Refill Encounter Details Date Type Department Care Team ([facility] st Contact Info) Description 04/23/2024 Refill Family [address] [phone] oDug Jane PA-C [address] [place] [phone] Allergies Active Allergy Reactions Criticality Noted Date Comments Aspirin Nausea/vomiting Low 05/13/2012 Latex Rash Low 05/13/2012 Metformin 03/17/2023 Extreme diarrhea Niacin 03/17/2023 Throat swelling documented as of this encounter (statuses as of 04/25/2024) Medications Medication Sig Dispensed Refills Start Date End Date Status Levothyroxine Sodium 50 MCG Oral Tablet (Levoxyl) Take 1 Tablet by mouth daily first thing in the morning. (at least 30 min prior to breakfast or other meds) 90 Tablet 3 04/08/2023 Active OneTouch Delica Plus [id number] use daily as directed 100 Each 11 04/08/2023 Active OneTouch Verio w/Device Kit Use up to 4 times a day E11.9 1 Kit 04/08/2023 Active OneTouch Verio In Vitro Strip (Glucose Blood) Use up to 4 times a day E11.9 100 Strip 11 04/08/2023 Active FLUoxetine HCl 40 MG Oral Capsule (PROzac)Indication s:Mood disorder (HCC) Take 1 Capsule by mouth [...] 09/12/2023 Active Furosemide 20 MG Oral Tablet (Lasix)Indications :Leg edema Take 1 Tablet by mouth daily as needed for Other (leg swelling). 30 Tablet 5 10/13/2023 Active Omeprazole 20 MG Oral Capsule Delayed Release (PriLOSEC) Take 1 Capsule by mouth daily. 30 Capsule 5 11/14/2023 Active Lisinopril 40 MG Oral TabletIndications: HTN, goal below 140/90 Take 1 Tablet by mouth in the morning. 90 Tablet 3 12/15/2023 Active traZODone HCl 100 MG Oral Tablet (Desyrel)Indicatio ns:Insomnia, unspecified type Take 2 Tablets by mouth at bedtime. 120 Tablet 5 12/15/2023 Active Potassium Chloride 20 MEQ/15ML (10%) Oral SolutionIndication s:HTN, goal below 140/90 Take 15 mL by [...] 01/09/2024 Active Pregabalin 150 MG Oral Capsule (Lyrica)Indication s:Chronic pain syndrome Take 1 Capsule by mouth in the morning and 1 Capsule at noon and 1 Capsule before bedtime. 90 Capsule 3 02/15/2024 Active hydrOXYzine HCl 25 MG Oral Tablet Take 1 Tablet by mouth 4 times a day as needed for Anxiety. 30 Tablet 5 04/25/2024 Active hydrOXYzine HCl 25 MG Oral Tablet Take 1 Tablet by mouth 4 times a day as needed for Anxiety. 30 Tablet 5 04/08/2023 Discontinue d(Refill) documented as of this encounter (statuses as of 04/25/2024) Active Problems Problem Noted Date Diagnosed Date Type 2 diabetes mellitus wit h hemoglobin A1c goal of less than 7.0% 12/15/2023 Mood disorder 07/25/2023 Food insecurity 02/23/2021 Overview: Per [facility] Protocol Amenorrhea, secondary 10/16/2020 HTN, goal [...] as of this encounter (statuses as of 04/25/2024) Resolved Problems Problem Noted Date Diagnosed Date [...] as of this encounter (statuses as of 04/25/2024) Immunizations Name Administration Dates Next Due Pneumococcal [...] Telephone Encounter - Doug Jane PA-C - 04/25/2024 2:57 PM EDTSigned Prescriptions: Disp Refills hydrOXYzine HCl 25 MG Oral Tablet 30 Tab*5 Sig: Take 1 Tablet by mouth 4 times a day as needed for Anxiety. Authorizing Provider: DOUG JANE * Telephone Encounter - Darren Murillo, [facility] - 04/25/2024 1:50 PM EDT Telepharmacy not authorized to fill for this medication per protocol. Please approve if appropriate. Pending Prescriptions: Disp Refills hydrOXYzine HCl 25 MG Oral Tablet 30 Tab*5 Sig: Take 1 Tablet by mouth 4 times a day as needed for Anxiety. 12/27/2023 (in office), Visit date not found (telemedicine) Visit date not found If no future appointments scheduled, and last appointment is greater than a year ago, please schedule patient for a follow-up appointment Last date the medication was ordered: Pharmacy: [facility] Is this request for a controlled substance? No Urine Drug Screen: Results for orders placed or performed in visit on 05/09/13 TOX SCREEN, URINE, W/ CONFIRMATION Result Value Amphetamine NEGATIVE Barbiturates NEGATIVE Benzodiazepines NEGATIVE Cannabinoids NEGATIVE Cocaine Metabolite NEGATIVE Morphine / Codeine NEGATIVE METHADONE MEDICAL NEGATIVE OXYCODONE NEGATIVE TOX COMMENT SCREENING RESULTS ARE PRESUMPTIVE AND CAN ONLY BE USED FOR MEDICAL PURPOSES. POSITIVE RESULTS REFLEX TO CONFIRMATORY TESTING. Cutoff Concentration Results for orders placed or performed during the hospital encounter of 05/13/12 TOX SCREEN, URINE, W/O CONFIRMATION Result Value Amphetamine NEGATIVE Barbiturates NEGATIVE Benzodiazepines NEGATIVE Cannabinoids NEGATIVE Cocaine Metabolite NEGATIVE Morphine / Codeine NEGATIVE OXYCODONE NEGATIVE METHADONE MEDICAL NEGATIVE NOTE: SEE COMMENT DETECTION LIMIT SEE COMMENT Patient Phone Numbers Labs: Lab Results Component Value Date/Time CREAT 0.8 12/31/2023 04:57 AM CREAT 0.6 03/17/2023 03:32 PM CREAT 0.8 04/21/2018 10:27 AM POTASSIUM 3.0 (L) 12/31/2023 04:57 AM POTASSIUM 3.0 (L) 03/17/2023 03:32 PM POTASSIUM 3.4 (L) 04/21/2018 10:27 AM TSH 4.45 (H) 02/06/2021 11:26 AM TSH 3.49 04/21/2018 10:27 AM LDL 82 03/17/2023 03:32 PM ALT 21 12/31/2023 04:57 AM ALT 18 03/17/2023 03:32 PM ALT 16 04/21/2018 10:27 AM HGBA1C 6.6 (H) 12/15/2023 09:56 AM HGBA1C 6.0 (H) 04/21/2018 10:27 AM * Telephone Encounter - Darren Murillo [facility] - 04/25/2024 1:50 PM EDT Pending Prescriptions: Disp Refills hydrOXYzine HCl 25 MG Oral Tablet 30 Tab*5 Sig: Take 1 Tablet by mouth 4 times a day as needed for Anxiety. documented in this encounter Plan of Treatment Upcoming Encounters Date Type Department Care Team (Late st Contact Info) Description 05/11/2024 6:10 PM EDT Pharmacy Pharmacy, [facility] [place] [address] [place] [address] Pharmacist2, [facility] [address] [place] [address] 03/14/2025 10:15 AM EDT Office Visit Gynecology/Obstetrics [facility] [address] [place] [address] Dayana Mann CNM [address] [place] [address] Health Maintenance Due Date Last Done Comments DISCUSS TOBACCO CESSATION (REFER TO SMARTSET #9884) 1975 Diabetic Eye Exam 11/03/1995 Diabetic Foot [...] 12/30/2024 12/31/2023, 08/07/2022, 10/01/2020, Additional history exists Lipid Panel 03/17/2028 [...] 11:55 AM 09/17/2010 2:51 AM This order r eflects the patients wishes and were consensually agreed upon. * Full Code Date Activated Date Inactivated Comments 02/14/2009 7:04 PM 02/15/2009 11:03 PM This order r eflects the patients wishes and were consensually agreed upon. Care Teams Natural Resource Specialist Relationship Specialty Start Date End Date Doug Jane PA-C [address] [place] [id number] PCP - General Physician Acute Care Nursing Assistant 06/14/23 documented as of this encounter
[2024-09-08] MEDS: traZODone HCL 100 MG TAB PO SCH (00:02)
[2024-09-08] MEDS: amLODIPine BESYLATE 5 MG TAB PO ONE (00:03)
[2024-09-08] MEDS: PREGABALIN 150 MG CAP PO SCH (00:03)
[2024-09-08] MEDS: MAGNESIUM SULFATE / D5W 1 GM/100 ML BAG IV ONE (00:04)
[2024-09-08] MEDS: NITROGLYCERIN SL 0.4 MG/TAB TAB SL PRN (00:07)
[2024-09-08] MEDS ORDERED: ALBUT/IPRATROP 3MG/0.5MG NEB 3 ML VIAL NEB PRN (00:15)
[2024-09-08] MEDS: ACETAMINOPHEN 325 MG TAB PO STA (01:02)
[2024-09-08] MEDS: ASPIRIN 81 MG ECTAB PO STA (01:02)
[2024-09-08] MEDS ORDERED: GLUCAGON FOR INJ 1 MG VIAL SQ PRN (01:21)
[2024-09-08] MEDS ORDERED: GLUCOSE 40% GEL 15 GM TUBE PO PRN (01:21)
[2024-09-08] MEDS ORDERED: GLUCOSE 10 TAB/TUBE PO PRN (01:21)
[2024-09-08] MEDS ORDERED: DEXTROSE 50% 50 ML SYRINGE IV PRN (01:21)
[2024-09-08] MEDS ORDERED: CARBOHYDRATES FOR HYPOGLYCEMIA PO PRN (01:21)
[2024-09-08] MEDS: INSULIN ASPART PER UNIT CHARGE SC SCH (02:14)
[2024-09-08] MEDS: guaiFENesin 600 MG TABCR PO STA (02:15)
[2024-09-08 03:14] LABS: Pregnancy Test, Urine Negative (Negative)
[2024-09-08 03:28] LABS: Amphetamines+Metham, Urine Neg (Neg); Barbiturates, Urine Neg (Neg); Benzodiazepine, Urine Neg (Neg); Cocaine, Urine Neg (Neg); Fentanyl, Urine Neg (Neg); MDMA (Ecstacy), Urine Neg (Neg); Marijuana, Urine Pos (Neg); Methadone, Urine Neg (Neg); Opiate, Urine Pos (Neg); Phencyclidine, Urine Neg (Neg)
[2024-09-08] MEDS: LANTUS PER UNIT CHARGE SQ STA (03:45)
[2024-09-08 04:23] VITALS: TEMP 98.1
[2024-09-08 06:09] LABS: BUN Creatinine Ratio 19.6 (10-20); Basophils # (auto) 0.05 K/uL (0.00-0.20); Basophils % (auto) 0.7 %; Calcium 8.8 mg/dl (8.6-10.3); Chol HDL Ratio 6.5 (0-5); Creatinine Clr Calc Pharmacy 138.4 ml/min; Eosinophils # (auto) 0.09 K/uL (0.00-0.50); Eosinophils % (auto) 1.3 %; Hematocrit (blood only) 34.9 % (37.0-47.0); Immature Granulocytes # (auto) 0.01 K/uL (0.01-0.20); Immature Granulocytes % (auto) 0.1 %; Lymphocytes # (auto) 3.19 K/uL (1.20-3.40); Lymphocytes % (auto) 45.2 %; Mean Corpuscular Hemoglobin 27.7 pg (25.0-34.0); Mean Corpuscular Hgb Conc 34.4 g/dL (32.0-36.0); Mean Corpuscular Volume 80.6 fL (80.0-100.0); Mean Platelet Volume 10.9 fL (9.4-12.4); Monocytes # (auto) 0.53 K/uL (0.11-0.59); Monocytes % (auto) 7.5 %; Neutrophils # (auto) 3.18 K/uL (1.40-6.50); Neutrophils % (auto) 45.2 %; Platelet Count 201 K/uL (130-400); Potassium 3.5 mmol/L (3.5-5.1); RDW Coefficient of Variation 14.1 % (11.5-14.5); RDW Standard Deviation 41.4 fL (36.4-46.3); Red Blood Count 4.33 M/uL (4.20-5.40); White Blood Count 7.05 K/ul (4.8-10.8)
[2024-09-08 06:29] LABS: Partial Thromboplastin Time 27 Seconds (21-31)
[2024-09-08 08:09] VITALS: PULSE 73; RESP 18; O2SAT 95
[2024-09-08] MEDS: LEVOTHYROXINE SODIUM 50 MCG TABLET PO SCH (08:10)
[2024-09-08] MEDS: ACETAMINOPHEN 325 MG TAB PO PRN (08:30)
[2024-09-08] MEDS ORDERED: LANTUS PER UNIT CHARGE SQ SCH ×2 (09:00→21:00)
[2024-09-08 09:11] LABS: Estimated Average Glucose 174 mg/dl; Hemoglobin A1C 7.7 % (4.5-5.6)
--- NOTE | 2024-09-08 09:15 | Cardiology Consultation ---
Date of Consultation September 08, 2024 Assessment & Plan (1) Hypertensive crisis: Plan Patient with chest pain and headache in setting of HTN crisis -ACS ruled out. -EKG without acute changes. Troponin negative x3 -Obtain echocardiogram to assess LVEF and rule out WMA. Ensure normal structure/function -QTc prolonged. Avoid QTc prolonging medications. Repeat EKG -Blood pressure well controlled today -Continue lisinopril 40mg daily and amlodipine 5mg daily -Rule out alternative causes for HTN with aldosterone/renin labs -Agree with outpatient sleep study Case discussed with Dr Malagon. I spent a total of 44 minutes on the date of service in preparation, delivery, and documentation of the care provided to this patient, excluding any time spent in the performance of separately billed services. Desiree Morales PA-C Department of Cardiology, [facility] This chart was completed in part utilizing Speech Voice Recognition Software. Grammatical errors, random word insertions, pronoun errors, and incomplete sentences are an occasional consequence of this system due to software limitations, ambient noise, and hardware issues. Any formal questions or concerns about the content, text, or information contained within the body of this dictation should be directly addressed to the provider for clarification. Supervising Physician Co-Signing Physician Notes I spent a total of 60 minutes on the date of service in preparation, delivery, and documentation of the care provided to this patient, excluding any time spent in the performance of separately billed services. I have personally performed a history and physical examination on the patient. I have reviewed the advance practitioner's documentation, and I agree with, and take responsibility for the plan of care. 48-year-old female with a past medical history of uncontrolled HTN active tobacco use, migraines, intracranial hypertension, hypothyroidism, chronic hypokalemia presented to the emergency room with uncontrolled high blood pressure. Patient states that at home her systolic blood pressure usually runs in the 180s to 190s. 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 Her colleague checked her blood pressure and it was 240 systolic and she was brought into the emergency room. She states the chest pain was a pressure that was nonexertional nonradiating improved once her blood pressure got better controlled. Her troponins were negative x 3 and ECG showed sinus rhythm with left ventricular hypertrophy but no acute ischemic changes. Her echocardiogram shows preserved left ventricular ejection fraction with mild LVH. Patient currently resting comfortably in bed. On clinical exam she is euvolemic. I had a long discussion with patient about about her symptoms, blood pressure control, and next Epson management. I recommended we do an ischemic evaluation given her risk factors and family history of coronary artery disease. Patient adamantly refuses to have any further ischemic evaluation done. I explained the risks of undiagnosed coronary disease and patient understands these risks and states that she prefers to follow-up as an outpatient with her own preference for cardiology. I advised patient the importance of following up with a digital court reporter as soon as possible. I explained that she is showing signs of hypertensive heart disease and with uncontrolled high blood pressure she would be at risk for developing congestive heart failure. Patient understands these risks and will need appropriate follow-up and workup for secondary causes of hypertension as well. Advised patient that if symptoms return or worsen to immediately come back to the emergency room. How you doing all right how are you History of Present Illness Reason for Consultation: HTN crisis Requesting Physician: Dr Swartz Attending Physician: Jose Alfredo Swartz MD History of Present Illness Mary Aguilar is a 48 year old female with PMHx HTN, T2 DM, migraines, idiopathic intracranial HTN, tobacco use, chronic hypokalemia, hypothyroidism, anxiety/mood disorder who presented to [facility] ED with achy headache x1 week and dry cough x2 days. Admits to some increased stress as she is packing to move to [place] next month. 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 SBP initially 240s at worksite. Troponin negative x3. Initial EKG with NSR no acute changes. Repeat EKG this morning with NSR prolonged QTc [address] head negative. Patient compliant with [employer] lisinopril 40mg daily Given IV lebatolol Amlodipine 5mg daily added Employed as EMT Family Hx heart disease Social Hx smokes 1PPD, occasional ETOH use Patient reports feeling well. Headache has resolved. No further chest pain. Allergies Allergy/AdvReac Type Severity Reaction Status Date / Time latex Allergy Severe Rash Verified 09/07/24 21:52 naproxen Allergy Anaphylaxis Verified 09/07/24 21:52 metoprolol [From Toprol XL] AdvReac Intermediate swelling Verified 09/07/24 22:32 aspirin AdvReac Nausea Verified 09/07/24 21:51 Home Medications Medication Instructions Recorded Confirmed Type Lasix 20 mg PO DAILY PRN leg swelling 09/07/24 09/07/24 History fluoxetine 40 mg PO DAILY 09/07/24 09/07/24 History levothyroxine 50 mcg PO DAILY 09/07/24 09/07/24 History lisinopril 40 mg PO DAILY 09/07/24 09/07/24 History omeprazole 20 mg PO DAILY 09/07/24 09/07/24 History oxycodone 5 mg PO Q4H PRN Pain (Scale Score 09/07/24 09/07/24 History 4-6) potassium chloride 20 meq PO DAILY 09/07/24 09/07/24 History pregabalin 150 mg PO TID 09/07/24 09/07/24 History trazodone 200 mg PO HS 09/07/24 09/07/24 History amlodipine 5 mg tablet (Norvasc) 5 mg PO HS 30 days #30 tabs 09/08/24 Rx aspirin 81 mg tablet,delayed 81 mg PO DAILY 30 days #30 tabs 09/08/24 Rx release sitagliptin phosphate 25 mg tablet 25 mg PO DAILY #30 tabs 09/08/24 Rx (Januvia) Patient History Social History Smoking Status: Current every day smoker Tobacco Type: Cigarettes Cigarettes Per Day: 1 pack; Hx Alcohol Use: Yes Alcohol type: hard liquor Hx Substance Use: No Preferred Language: Chinese Communication Ability: Effective Veterinary Technician Instructor Required: No Beliefs That Will Affect Care: None Current Living Situation: Family Other Information That Helps Us Care for You: No Feels Safe at Home: Yes Safety Concerns: Feels Safe At This Time Review of Systems Review of Systems: All systems reviewed & are unremarkable except as noted in HPI & below Physical Exam Constitutional: WD/WN, vitals as above Respiratory: normal respiratory effort, lungs clear to auscultation Cardiovascular: RRR, no murmur, no edema Skin: no rashes, warm and dry Psychiatric: A+Ox3, euthymic affect Results & Data Vital Signs (Past 12 Hours) Vital Signs Temp Pulse Pulse Resp BP BP BP 09/08/24 08:08 73 18 119/75 09/08/24 08:00 79 09/08/24 04:22 36.7 C 88 22 125/83 09/08/24 02:35 85 17 175/88 H 09/08/24 01:29 36.9 C 84 18 115/67 09/08/24 01:12 36.9 C 88 18 150/80 H 09/08/24 00:25 183/107 H 09/08/24 00:20 177/99 H 09/08/24 00:16 84 09/08/24 00:15 152/94 H 09/08/24 00:15 90 20 09/08/24 00:12 89 16 09/08/24 00:10 171/113 H 09/08/24 00:10 171/113 H 09/08/24 00:00 212/118 H 09/08/24 00:00 212/118 H 09/07/24 23:51 19 09/07/24 23:48 83 15 09/07/24 23:46 191/106 H 09/07/24 23:46 191/106 H 09/07/24 23:33 74 17 09/07/24 23:30 173/144 H 09/07/24 23:30 71 21 09/07/24 23:15 214/115 H 09/07/24 23:15 214/115 H 09/07/24 23:15 71 18 09/07/24 23:09 70 19 209/112 H 09/07/24 21:13 67 199/122 H Pulse Ox O2 Del Method 09/08/24 08:08 95 Room Air 09/08/24 08:00 09/08/24 04:22 97 Room Air 09/08/24 02:35 96 09/08/24 01:29 94 Room Air 09/08/24 01:12 95 Room Air 09/08/24 00:25 09/08/24 00:20 09/08/24 00:16 09/08/24 00:15 09/08/24 00:15 98 09/08/24 00:12 94 09/08/24 00:10 09/08/24 00:10 09/08/24 00:00 09/08/24 00:00 09/07/24 23:51 09/07/24 23:48 98 09/07/24 23:46 09/07/24 23:46 09/07/24 23:33 99 09/07/24 23:30 02/21/25 23:30 99 09/07/24 23:15 09/07/24 23:15 09/07/24 23:15 99 09/07/24 23:09 99 Room Air 09/07/24 21:13 Laboratory Results Cardiac Enzymes 09/07/24 09/07/24 09/08/24 Range/Units 18:19 22:29 05:04 AST 18 (13-39) U/L Troponin I High Sens 6.2 8.3 7.9 (0-14) pg/ml Coagulation 09/07/24 09/08/24 Range/Units 18:19 05:04 PT 9.9 (9.0-12.0) Seconds APTT 27 27 (21-31) Seconds Lipids 09/08/24 Range/Units 05:04 Triglycerides 361 H (0-150) mg/dl Cholesterol 188 (0-200) mg/dl HDL Cholesterol 29 mg/dl Cholesterol/HDL Ratio 6.5 H (0-5) CBC 09/07/24 09/08/24 Range/Units 18:19 05:04 WBC 8.68 7.05 (4.8-10.8) K/ul RBC 4.73 4.33 (4.20-5.40) M/uL Hgb 13.1 12.0 (12.0-16.0) g/dl Hct 38.2 34.9 L (37.0-47.0) % Plt Count 216 201 (130-400) K/uL Neut # (Auto) 5.05 3.18 (1.40-6.50) K/uL Lymph # (Auto) 3.00 3.19 (1.20-3.40) K/uL [place] # (Auto) 0.49 0.53 (0.11-0.59) K/uL Eos # (Auto) 0.07 0.09 (0.00-0.50) K/uL Baso # (Auto) 0.05 0.05 (0.00-0.20) K/uL Comprehensive Metabolic Panel 09/07/24 09/08/24 Range/Units 18:19 05:04 Sodium 137 138 (136-145) mmol/L Potassium 3.4 L 3.5 (3.5-5.1) mmol/L Chloride 103 106 (98-107) mmol/L Carbon Dioxide 28 27 (21-32) mmol/L BUN 11 11 (6-23) mg/dl Creatinine 0.76 0.56 L (0.6-1.2) mg/dl Glucose 240 H 164 H (70-99(Fasting)) mg/dl Calcium 9.6 8.8 (8.6-10.3) mg/dl AST 18 (13-39) U/L ALT 15 (7-52) U/L Alkaline Phosphatase 76 (34-104) U/L Total Protein 7.1 (6.0-8.3) gm/dl Albumin 4.2 (3.4-5.0) gm/dl Intake and Output 09/07/24 09/08/24 09/08/24 22:59 06:59 14:59 Intake Total 150.25 / 150.25 Balance 150.25 / 150.25 Intake: IV 150.25 / 150.25 Magnesium Sulfate / D5w 1 gm In 100 / 100 100 ml @ 50 mls/hr IV ONE ONE Rx#:[id number] Promethazine 6.25 mg In 50.25 50.25 / 50.25 ml @ 201 mls/hr IV Q6H PRN Rx#: [id number] Other: Weight 85.7 kg 93 kg Weight Measurement Method [facility] in [facility] Diagnostic Findings EKG 09/08/2024 NSR 81bpm QTc 522 cannot rule out anterior infarct CXR 09/07/2024 Normal chest radiograph EKG 09/07/2024 SR 1 degree AV block LVH QTc 453
[2024-09-08] MEDS: ATORVASTATIN 40 MG TAB PO SCH (09:28)
[2024-09-08] MEDS: guaiFENesin 600 MG TABCR PO SCH (09:28)
[2024-09-08] MEDS: POTASSIUM CHLORIDE CRTAB 20 MEQ TABCR PO SCH (09:28)
[2024-09-08] MEDS: FLUoxetine HCL 20 MG CAP PO SCH (09:28)
[2024-09-08] MEDS: lisinopril 40 MG TAB PO SCH (09:28)
[2024-09-08] MEDS: ENOXAPARIN INJ 40 MG/0.4 ML SYR SQ SCH (09:29)
[2024-09-08] MEDS: PANTOprazole 40 MG TAB PO SCH (09:29)
--- NOTE | 2024-09-08 10:02 | Electrocardiogram Report ---
Test Reason : Blood Pressure : */* mmHG Vent. Rate : 75 BPM Atrial Rate : 75 BPM P-R Int : 212 ms QRS Dur : 94 ms QT Int : 406 ms P-R-T Axes : 57 7 93 degrees QTcB Int : 453 ms Sinus rhythm with 1st degree A-V block Left ventricular hypertrophy with repolarization abnormality ( R in aVL ) Abnormal ECG No previous ECGs available Confirmed by Gordo Sanabria ([id number]) on 09/08/2024 10:01:45 AM Referred By: REFERRED SELF Confirmed By: Gordo Sanabria
[2024-09-08 15:14] VITALS: BP 175/107
--- NOTE | 2024-09-08 16:02 | Hospitalist Progress Note ---
Date of Service September 08, 2024 Assessment & Plan (1) Hypertensive crisis: Plan: per admitting service notes with addendum: Hypertensive Urgency Chest pain, Acute ACS ruled out - Troponin x 3 negative EKG no signs of acute ischemia infarct - echo: EF 55-60% mild mitral regurgitation LV wall motion is normal - chest pain resolved with improvement of hypertension - evaluated of Cardiology [facility] patient declined inpatient evaluation, per field sales agent : "I recommended we do an ischemic evaluation given her risk factors and family history of coronary artery disease. Patient adamantly refuses to have any further ischemic evaluation done. I explained the risks of undiagnosed coronary disease and patient understands these risks and states that she prefers to follow-up as an outpatient with her own preference for cardiology. I advised patient the importance of following up with a field sales agent as soon as possible. I explained that she is showing signs of hypertensive heart disease and with uncontrolled high blood pressure she would be at risk for developing congestive heart failure. Patient understands these risks and will need appropriate follow-up and workup for secondary causes of hypertension as well. Advised patient that if symptoms return or worsen to immediately come back to the emergency room." - discharged on Amlodipine 5mg po daily and ASA 81mg po daily strongly advised to ff up with PCP within 1 week patient verbalized understanding and agreement - Concern for secondary causes of hypertension like primary hyperaldosteronism (given chronic hypokalemia on review of outpatient blood work) and LAURIE Renin and Aldosterone level pending, ff up outpatient sleep study Hilar Adenopathy CT Angio chest: 1. No pulmonary embolism. 2. There is mild bilateral hilar lymphadenopathy. No significant mediastinal lymphadenopathy identified. No axillary lymphadenopathy. CT follow-up in 6 weeks recommended to document stability/resolution. Hyperlipidemia, not on statin Rx - ff up as outpatient TG elevated in the 300s HDL 29 VLDL 72 DM2 on oral medications, BSG elevated, well-controlled as of last outpatient hemoglobin A1c of 6.6 from 2022 -a1c 7.7 -patient states she could not afford Trulicity requesting to resume previous Januvia for now until ff up with PCP sent Rx for Januvia 25mg po daily - close outpoatient ff up hypothyroidism, euthyroid as of today's TSH hx chronic migraine/idiopathic intracranial hypertension as per records anxiety/mood disorder, mild anxiety during exam ongoing tobacco abuse Admission and Anticipated Discharge Date Admission Date: September 07, 2024 Subjective ff up for chest pain etc seen resting in bed, comfortable in good spirits states she feels better overall chest pain and SOB resolved no chest pain, dyspnea, palpitations, dizziness no other new symptoms states she is ready and would like to be discharged Review of Systems Review of Systems: all noted and negative except for above Physical Exam Physical Exam: General- oriented x 3, not in distress, speaks in sentences with no effort or accessory muscle use Eyes- anicteric Neck- no JVD Lungs- clear breath sounds bilaterally, no rales/wheezes Heart- normal rate, regular rhythm; no murmurs Abdomen- normal bowel sounds, nondistended, soft, nontender Extremities- no pretibial edema, no calf tenderness Neuro- alert, oriented x 3; no gross focal neurologic deficits Skin- warm & dry Results & Data Results & Data Vital Signs (Past 12 Hours) Vital Signs Temp Pulse Pulse Resp BP Pulse Ox O2 Del Method 09/08/24 15:06 36.7 C 73 18 175/107 H 95 09/08/24 08:08 73 18 119/75 95 Room Air 09/08/24 08:00 79 09/08/24 04:22 36.7 C 88 22 125/83 97 Room Air all noted and reviewed including below
--- NOTE | 2024-09-08 16:19 | Discharge Summary ---
Discharge Summary Date of Service September 08, 2024 Principal Dx & Hospital Course #1 = Principal Diagnosis (1) Hypertensive crisis: (1) Hypertensive crisis: Plan: per admitting service notes with addendum: Hypertensive Urgency Chest pain, Acute ACS ruled out - Troponin x 3 negative EKG no signs of acute ischemia infarct - echo: EF 55-60% mild mitral regurgitation LV wall motion is normal - chest pain resolved with improvement of hypertension - evaluated of Cardiology [facility] patient declined inpatient evaluation, per medical transcriber : "I recommended we do an ischemic evaluation given her risk factors and family history of coronary artery disease. Patient adamantly refuses to have any further ischemic evaluation done. I explained the risks of undiagnosed coronary disease and patient understands these risks and states that she prefers to follow-up as an outpatient with her own preference for cardiology. I advised patient the importance of following up with a medical transcriber as soon as possible. I explained that she is showing signs of hypertensive heart disease and with uncontrolled high blood pressure she would be at risk for developing congestive heart failure. Patient understands these risks and will need appropriate follow-up and workup for secondary causes of hypertension as well. Advised patient that if symptoms return or worsen to immediately come back to the e mergency room." - discharged on Amlodipine 5mg po daily and ASA 81mg po daily strongly advised to ff up with PCP within 1 week patient verbalized understanding and agreement - Concern for secondary causes of hypertension like primary hyperaldosteronism (given chronic hypokalemia on review of outpatient blood work) and LAURIE Renin and Aldosterone level pending, ff up outpatient sleep study Hilar Adenopathy CT Angio chest: 1. No pulmonary embolism. 2. There is mild bilateral hilar lymphadenopathy. No significant mediastinal lymphadenopathy identified. No axillary lymphadenopathy. CT follow-up in 6 weeks recommended to document stability/resolution. Hyperlipidemia, not on statin Rx - ff up as outpatient TG elevated in the 300s HDL 29 VLDL 72 DM2 on oral medications, BSG elevated, well-controlled as of last outpatient hemoglobin A1c of 6.6 from 2022 -a1c 7.7 -patient states she could not afford Trulicity requesting to resume previous Januvia for now until ff up with PCP sent Rx for Januvia 25mg po daily - close outpoatient ff up hypothyroidism, euthyroid as of today's TSH hx chronic migraine/idiopathic intracranial hypertension as per records anxiety/mood disorder, mild anxiety during exam ongoing tobacco abuse Notes For Next Care Provider Medication Changes From Visit AMLODIPINE- for control of high blood pressure ASPIRIN- for prevention of heart attack, always take with a full stomach Resume Januvia for now until you see your primary care physician this coming week for further advice. Admission HPI Per Admitting Provider History obtained from patient, family, and records. Medical history significant for hypertension, hyperlipidemia, GERD, DM2 on oral medications, hypothyroidism, chronic migraine, idiopathic intracranial hypertension as per records, anxiety/mood disorder, ongoing tobacco abuse. 1 week history of achy headache symptoms different from migraine which later bec sabrina constant. Some stress at home due to packing and extended work shifts in preparation for relocation to [place] next month. Nonrestorative sleep at home with snoring symptoms as per patient/family account. Patient does not check blood pressure at home. 2 days history of dry cough symptoms without chest pain or SOB. 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 Denies aspiration. No fever, no chills. No known exposure to sick animals/dairy cows/raw milk/wild birds/poultry/agricultural fair attendance/recent travel to an area of known H5N1 animal outbreaks. 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 SBP 240s at the worksite. Patient brought to ER for evaluation. IV labetalol administered at the ER. Chest pain relieved by nitroglycerin administration at the ER. Medical History as above Surgical History : Lymph node biopsy, cervical colposcopy, D&C Family History : Breast cancer, DM, SLE, heart disease Personal/Social history : 1 pack daily, occasional EtOH intake, EMT Admission Exam Per Admitting Provider GENERAL: Comfortable, slightly anxious, obese, no respiratory distress SKIN: Normal color, warm HEENT: [place] palpebral conjunctivae, no ptosis, moist buccal mucosa NECK : Supple, no tenderness CHEST : Decreased breath sounds, no tenderness HEART : RRR, no obvious murmurs ABDOMEN: Some distention, nontender EXTREMITIES : No LE swelling/tenderness, palpable pulses, no other conspicuous deformities noted NEUROLOGIC : Coherent, no facial asymmetry, no other gross focality Discharge Exam General- oriented x 3, not in distress, speaks in sentences with no effort or accessory muscle use Eyes- anicteric Neck- no JVD Lungs- clear breath sounds bilaterally, no rales/wheezes Heart- normal rate, regular rhythm; no murmurs Abdomen- normal bowel sounds, nondistended, soft, nontender Extremities- no pretibial edema, no calf tenderness Neuro- alert, oriented x 3; no gross focal neurologic deficits Skin- warm & dry Updated Medication List Medication Instructions Recorded Confirmed Type Lasix 20 mg PO DAILY PRN leg swelling 09/07/24 09/07/24 History fluoxetine 40 mg PO DAILY 09/07/24 09/07/24 History levothyroxine 50 mcg PO DAILY 09/07/24 09/07/24 History lisinopril 40 mg PO DAILY 09/07/24 09/07/24 History omeprazole 20 mg PO DAILY 09/07/24 09/07/24 History oxycodone 5 mg PO Q4H PRN Pain (Scale Score 09/07/24 09/07/24 History 4-6) potassium chloride 20 meq PO DAILY 09/07/24 09/07/24 History pregabalin 150 mg PO TID 09/07/24 09/07/24 History trazodone 200 mg PO HS 09/07/24 09/07/24 History amlodipine 5 mg tablet (Norvasc) 5 mg PO HS 30 days #30 tabs 09/08/24 Rx aspirin 81 mg tablet,delayed 81 mg PO DAILY 30 days #30 tabs 09/08/24 Rx release sitagliptin phosphate 25 mg tablet 25 mg PO DAILY #30 tabs 09/08/24 Rx (Januvia) Hospital Stay Data Consultations 09/07/24 20:32 ED Decision to Admit Stat 09/08/24 00:31 Consult Cardiology Routine Diagnostic Imagining Performed 09/07/24 21:39 CT angio chest PE protocol Stat CT head/brain wo con Stat Laboratory Results WBC 7.05 K/ul (4.8-10.8) 09/08/24 05:04 RBC 4.33 M/uL (4.20-5.40) 09/08/24 05:04 Hgb 12.0 g/dl (12.0-16.0) 09/08/24 05:04 Hct 34.9 % (37.0-47.0) L 09/08/24 05:04 MCV 80.6 fL (80.0-100.0) 09/08/24 05:04 MCH 27.7 pg (25.0-34.0) 09/08/24 05:04 MCHC 34.4 g/dL (32.0-36.0) 09/08/24 05:04 RDW Std Deviation 41.4 fL (36.4-46.3) 09/08/24 05:04 RDW Coeff of Nirav 14.1 % (11.5-14.5) 09/08/24 05:04 Plt Count 201 K/uL (130-400) 09/08/24 05:04 MPV 10.9 fL (9.4-12.4) 09/08/24 05:04 Immature Gran % (Auto) 0.1 % 09/08/24 05:04 Neut % (Auto) 45.2 % 09/08/24 05:04 Lymph % (Auto) 45.2 % 09/08/24 05:04 Isabella % (Auto) 7.5 % 09/08/24 05:04 Eos % (Auto) 1.3 % 09/08/24 05:04 Baso % (Auto) 0.7 % 09/08/24 05:04 Neut # (Auto) 3.18 K/uL (1.40-6.50) 09/08/24 05:04 Lymph # (Auto) 3.19 K/uL (1.20-3.40) 09/08/24 05:04 Isabella # (Auto) 0.53 K/uL (0.11-0.59) 09/08/24 05:04 Eos # (Auto) 0.09 K/uL (0.00-0.50) 09/08/24 05:04 Baso # (Auto) 0.05 K/uL (0.00-0.20) 09/08/24 05:04 Immature Gran # (Auto) 0.01 K/uL (0.01-0.20) 09/08/24 05:04 ESR 18 mm/hr (0-20) 09/07/24 22:29 PT 9.9 Seconds (9.0-12.0) 09/07/24 18:19 INR 0.9 (0.9-1.1) 09/07/24 18:19 APTT 27 Seconds (21-31) 09/08/24 05:04 PTT Ratio 1.0 09/08/24 05:04 Sodium 138 mmol/L (136-145) 09/08/24 05:04 Potassium 3.5 mmol/L (3.5-5.1) 09/08/24 05:04 Chloride 106 mmol/L (98-107) 09/08/24 05:04 Carbon Dioxide 27 mmol/L (21-32) 09/08/24 05:04 Anion Gap 5 (3-11) 09/08/24 05:04 BUN 11 mg/dl (6-23) 09/08/24 05:04 Creatinine 0.56 mg/dl (0.6-1.2) L 09/08/24 05:04 Est Cr Clr Drug Dosing 138.4 ml/min 09/08/24 05:04 eGFR 113.91 09/08/24 05:04 BUN/Creatinine Ratio 19.6 (10-20) 09/08/24 05:04 Glucose 164 mg/dl (70-99(Fasting)) H 09/08/24 05:04 POC Glucose 158 mg/dl (70-99) H 09/08/24 13:05 Estimat Average Glucose 174 mg/dl 09/07/24 18:19 Hemoglobin A1c 7.7 % (4.5-5.6) H 09/07/24 18:19 Calcium 8.8 mg/dl (8.6-10.3) 09/08/24 05:04 Magnesium 1.7 mg/dl (1.7-2.4) 09/07/24 18:19 Total Bilirubin 0.3 mg/dl (0.2-1.0) 09/07/24 18:19 AST 18 U/L (13-39) 09/07/24 18:19 ALT 15 U/L (7-52) 09/07/24 18:19 Alkaline Phosphatase 76 U/L (34-104) 09/07/24 18:19 Troponin I High Sens 7.9 pg/ml (0-14) 09/08/24 05:04 C-Reactive Protein 1.38 mg/dl (0-0.5) H 09/07/24 22:29 Total Protein 7.1 gm/dl (6.0-8.3) 09/07/24 18:19 Albumin 4.2 gm/dl (3.4-5.0) 09/07/24 18:19 Globulin 2.9 gm/dl (2.5-4.0) 09/07/24 18:19 Albumin/Globulin Ratio 1.4 (0.9-2) 09/07/24 18:19 Triglycerides 361 mg/dl (0-150) H 09/08/24 05:04 Cholesterol 188 mg/dl (0-200) 09/08/24 05:04 LDL Cholesterol, Calc 87 mg/dl 09/08/24 05:04 VLDL Cholesterol, Calc 72 mg/dl (0-30) H 09/08/24 05:04 HDL Cholesterol 29 mg/dl 09/08/24 05:04 Cholesterol/HDL Ratio 6.5 (0-5) H 09/08/24 05:04 TSH 1.809 uIu/ml (0.300-4.500) 09/07/24 18:19 Urine Test Negative (Negative) 09/08/24 02:28 Urine Opiates Screen Pos (Neg) H 09/08/24 02:33 Ur Methadone, Qual Neg (Neg) 09/08/24 02:33 Urine Fentanyl Screen Neg (Neg) 09/08/24 02:33 Urine Barbiturates Neg (Neg) 09/08/24 02:33 Ur Phencyclidine (PCP) Neg (Neg) 09/08/24 02:33 U Amphetamin/Meth Scrn Neg (Neg) 09/08/24 02:33 MDMA (Ecstasy) Screen Neg (Neg) 09/08/24 02:33 U Benzodiazepines Scrn Neg (Neg) 09/08/24 02:33 Ur Cocaine Metabolite Neg (Neg) 09/08/24 02:33 U Marijuana (THC) Screen Pos (Neg) H 09/08/24 02:33 Adenovirus (PCR) Not Detected (NotDetected) 09/07/24 21:50 B. pertussis DNA (PCR) Not Detected (NotDetected) 09/07/24 21:50 B.parapertussis DNA PCR Not Detected (NotDetected) 09/07/24 21:50 C. pneumoniae DNA (PCR) Not Detected (NotDetected) 09/07/24 21:50 Coronavirus OC43 (PCR) Not Detected (NotDetected) 09/07/24 21:50 Coronavirus HKU1 (PCR) Not Detected (NotDetected) 09/07/24 21:50 Coronavirus 229E (PCR) Not Detected (NotDetected) 09/07/24 21:50 SARS-CoV-2 (PCR) Not Detected (NotDetected) 09/07/24 21:50 Coronavirus NL63 (PCR) Not Detected (NotDetected) 09/07/24 21:50 Human Metapneumovir PCR Not Detected (NotDetected) 09/07/24 21:50 Influenza Type A (PCR) Not Detected (NotDetected) 09/07/24 21:50 Influenza Type B (PCR) Not Detected (NotDetected) 09/07/24 21:50 M. pneumoniae (PCR) Not Detected (NotDetected) 09/07/24 21:50 Parainfluenza 1 (PCR) Not Detected (NotDetected) 09/07/24 21:50 Parainfluenza 2 (PCR) Not Detected (NotDetected) 09/07/24 21:50 Parainfluenza 3 (PCR) Not Detected (NotDetected) 09/07/24 21:50 Parainfluenza 4 (PCR) Not Detected (NotDetected) 09/07/24 21:50 RSV (PCR) Not Detected (NotDetected) 09/07/24 21:50 Entero/Rhino (PCR) Not Detected (NotDetected) 09/07/24 21:50 Impressions Chest X-Ray 09/07/24 18:10 Chest radiograph, one view History: Chest pain Comparison: None Findings: Single AP view of the chest performed. No focal consolidation or pleural effusion. No pneumothorax. The cardiomediastinal silhouette is within normal limits. Normal pulmonary vascularity. No evidence for lymphadenopathy. No visualized bony or soft tissue abnormality. Impression: Normal chest radiograph Electronically signed by Zac Vallecillo 09-07-2024 6:48 PM Chest CTA 09/07/24 21:39 Exam(s): CTA CHEST IV Amt: 115 ml optiray 320 EXAM: CT Angiography Chest With Intravenous Contrast CLINICAL HISTORY: Reason for exam: cp. TECHNIQUE: Axial computed tomographic angiography images of the chest with intravenous contrast. CTDI is 34.93 mGy and DLP is 1592.61 mGy-cm. Automated exposure control was utilized for the study. A dose lowering technique was utilized adhering to the principles of ALARA. MIP reconstructed images were created and reviewed. COMPARISON: No relevant prior studies available. FINDINGS: Pulmonary arteries: Unremarkable. No pulmonary embolism. Aorta: No acute findings. No thoracic aortic aneurysm. Lungs: Unremarkable. No segmental or lobar consolidation. Pleural space: Unremarkable. No pleural fluid or pneumothorax. Heart: Unremarkable. No cardiomegaly. No significant pericardial effusion. No evidence of RV dysfunction. Bones/joints: No acute fracture. No dislocation. Soft tissues: Unremarkable. Lymph nodes: There is mild bilateral hilar lymphadenopathy. No significant mediastinal lymphadenopathy identified. No axillary lymphadenopathy. Gallbladder and bile ducts: The gallbladder has been removed. Other findings: No primary mass or suspicious nodule. No significant upper abdominal abnormality identified. IMPRESSION: 1. No pulmonary embolism. 2. There is mild bilateral hilar lymphadenopathy. No significant mediastinal lymphadenopathy identified. No axillary lymphadenopathy. CT follow-up in 6 weeks recommended to document stability/resolution. Electronically signed by: Raheel Roberts MD 09/07/24 23:[address] 09/07/24 21:39 Exam(s): CT HEAD Without Contrast EXAM: CT Head Without Intravenous Contrast CLINICAL HISTORY: Reason for exam: clancy, htn crisis. TECHNIQUE: Axial computed tomography images of the head/brain without intravenous contrast. CTDI is 34.93 mGy and DLP is 1592.61 mGy-cm. Automated exposure control was utilized for the study. A dose lowering technique was utilized adhering to the principles of ALARA. COMPARISON: No relevant prior studies available. FINDINGS: Brain: Unremarkable. No hemorrhage. No significant white matter disease. No edema. Ventricles: Unremarkable. No ventriculomegaly. Bones/joints: Unremarkable. No acute fracture. Soft tissues: Unremarkable. Sinuses: Unremarkable as visualized. No acute sinusitis. Mastoid air cells: Unremarkable as visualized. No mastoid effusion. Sella: There is an empty sella. IMPRESSION: No acute intracranial abnormality. Electronically signed by: Raheel Roberts MD 09/07/24 23:21 PM Pending Results Patient Have Any Pending Studies at Discharge: No Discharge Instructions Given to Patient (Per Discharging Provider) PLEASE REFER TO YOUR NEW MEDICATION LIST AND FOLLOW INSTRUCTIONS CAREFULLY. YOUR NEW MEDICATIONS INCLUDE: AMLODIPINE- for control of high blood pressure ASPIRIN- for prevention of heart attack, always take with a full stomach Resume Januvia for now until you see your primary care physician this coming week for further advice. Avoid, salty fatty food. Your Triglyceride level is elevated. Follow a low carbohydrate diet. PLEASE CALL YOUR PRIMARY CARE PHYSICIAN OR RETURN TO THE ER IF WITH WORSENING OF SYMPTOMS, INCLUDING chest pain, shortness of breath, palpitations, dizziness, etc Check your blood sugar daily. Call your primary care physician if it is persistently above 200. Return to the ER if it is > 300. IT IS VERY IMPORTANT TO FOLLOW UP WITH YOUR PRIMARY CARE PHYSICIAN THIS COMING WEEK, BEFORE YOU LEAVE FOR [place]. Total Time Total Time Spent Total Time Spent (In Minutes): 45 minutes
[2024-09-08] MEDS ORDERED: amLODIPine BESYLATE 5 MG TAB PO SCH ×2 (21:00)
[2024-09-08] MEDS ORDERED: NICOTINE 21 MG/24 HR TDSY TD SCH (21:00)
[2024-09-09] MEDS ORDERED: ASPIRIN 81 MG ECTAB PO SCH (09:00)
--- NOTE | 2024-09-09 10:15 | Electrocardiogram Report ---
Test Reason : Blood Pressure : */* mmHG Vent. Rate : 81 BPM Atrial Rate : 81 BPM P-R Int : 196 ms QRS Dur : 94 ms QT Int : 450 ms P-R-T Axes : 55 9 84 degrees QTcB Int : 522 ms Normal sinus rhythm Poor R wave progression, consider anterior WI vs. lead placement vs. LVH Prolonged QT Abnormal ECG When compared with ECG of 07-Sep-2024 18:12, QT has lengthened Confirmed by Gordo Sanabria ([id number]) on 09/09/2024 10:15:26 AM Referred By: REFERRED SELF Confirmed By: Gordo Sanabria
--- NOTE | 2024-09-10 15:02 | Electrocardiogram Report ---
Test Reason : Blood Pressure : */* mmHG Vent. Rate : 74 BPM Atrial Rate : 74 BPM P-R Int : 204 ms QRS Dur : 92 ms QT Int : 440 ms P-R-T Axes : 68 46 90 degrees QTcB Int : 488 ms Normal sinus rhythm Normal ECG When compared with ECG of 08-Sep-2024 08:18, No significant change was found Confirmed by Gordo Sanabria ([id number]) on 09/10/2024 3:02:23 PM Referred By: REFERRED SELF Confirmed By: Gordo Sanabria
[2024-09-11 10:37] LABS: Codeine Urine NEGATIVE ng/mL (<50); Hydrocodone Urine NEGATIVE ng/mL (<50); Hydromor Urine NEGATIVE ng/mL (<50); Marijuana Quant, GCMS Urine 406 ng/mL (<5); Morphine Urine 768 ng/mL (<50); Norhydrocodone Conf Ur NEGATIVE ng/mL (<50); Noroxycodone Urine 550 ng/mL (<50); Oxycodone Urine 317 ng/mL (<50); Oxymorph Urine 75 ng/mL (<50)
== END 2024-09-08 15:15 | disposition home or self-care (01) | DRG 305 ==
LOC: ED 17:56 → EDINP 23:25